=== PATIENT | female | born 1985 | race Caucasian/White ===

== ENCOUNTER 2020-03-16 09:11 | Outpatient (REF) | payer OTHER, SELFPAY ==
[2020-03-16 10:15] LABS: COVID-19 Test Negative (Negative)
== END 2020-03-16 09:12 | disposition home or self-care (01) ==
LOC: HO.LAB 09:11
PROVIDERS: Visit Provider Internal Medicine
DX: Z20.828 Contact with and (suspected) exposure to other viral communicable diseases (principal)
CPT/HCPCS: 87635

== ENCOUNTER 2020-03-20 08:42 | Outpatient (REF) | payer OTHER, SELFPAY ==
[2020-03-20 09:27] LABS: COVID-19 Test Negative (Negative)
== END 2020-03-20 08:43 | disposition home or self-care (01) ==
LOC: HO.LAB 08:42
PROVIDERS: Visit Provider Internal Medicine
DX: Z20.828 Contact with and (suspected) exposure to other viral communicable diseases (principal)
CPT/HCPCS: 87635

== ENCOUNTER 2020-03-27 11:21 | Outpatient (REF) | payer OTHER, SELFPAY ==
[2020-03-27 12:12] LABS: COVID-19 Test Negative (Negative)
== END 2020-03-27 11:22 | disposition home or self-care (01) ==
LOC: HO.LAB 11:21
PROVIDERS: Visit Provider Internal Medicine
DX: Z20.828 Contact with and (suspected) exposure to other viral communicable diseases (principal)
CPT/HCPCS: 87635

== ENCOUNTER 2020-04-04 11:24 | Outpatient (REF) | payer OTHER, SELFPAY ==
[2020-04-04 11:50] LABS: COVID-19 Test Negative (Negative)
== END 2020-04-04 11:25 | disposition home or self-care (01) ==
LOC: HO.LAB 11:24
PROVIDERS: Visit Provider Internal Medicine
DX: Z20.828 Contact with and (suspected) exposure to other viral communicable diseases (principal)
CPT/HCPCS: 87635; 90686; C9803

== ENCOUNTER 2020-04-11 11:02 | Outpatient (REF) | payer OTHER, SELFPAY ==
[2020-04-11 11:26] LABS: COVID-19 Test Negative (Negative); IDNOW Serial# 55D5AD1C
== END 2020-04-11 11:03 | disposition home or self-care (01) ==
LOC: HO.EMPCOV 11:02
PROVIDERS: Visit Provider Internal Medicine
DX: Z20.828 Contact with and (suspected) exposure to other viral communicable diseases (principal)
CPT/HCPCS: 87635; C9803

== ENCOUNTER 2020-04-14 10:56 | Outpatient (REF) | payer OTHER, SELFPAY ==
[2020-04-14 11:51] LABS: COVID-19 Test Negative (Negative); IDNOW Serial# 55D5AD1C
== END 2020-04-14 10:57 | disposition home or self-care (01) ==
LOC: HO.EMPCOV 10:56
PROVIDERS: Visit Provider Internal Medicine
DX: Z20.828 Contact with and (suspected) exposure to other viral communicable diseases (principal)
CPT/HCPCS: 87635; C9803

== ENCOUNTER 2020-05-12 09:09 | Outpatient (REF) | payer OTHER, SELFPAY ==
[2020-05-12 09:55] LABS: COVID-19 Test Negative (Negative); IDNOW Serial# 55D5AD1C
== END 2020-05-12 09:10 | disposition home or self-care (01) ==
LOC: HO.LAB 09:09
PROVIDERS: Visit Provider Internal Medicine
DX: Z20.828 Contact with and (suspected) exposure to other viral communicable diseases (principal)
CPT/HCPCS: 87635; C9803

== ENCOUNTER 2020-06-06 08:55 | Outpatient (REF) | payer OTHER, SELFPAY ==
[2020-06-06 09:11] LABS: COVID-19 Test Negative (Negative)
== END 2020-06-06 08:56 | disposition home or self-care (01) ==
LOC: HO.LAB 08:55
PROVIDERS: Visit Provider Internal Medicine
DX: Z20.822 Contact with and (suspected) exposure to COVID-19 (principal)
CPT/HCPCS: 36415; 87635; C9803

== ENCOUNTER 2020-08-09 08:34 | Outpatient (REF) | payer OTHER, SELFPAY ==
[2020-08-09 08:53] LABS: COVID-19 Test Negative (Negative)
== END 2020-08-09 08:35 | disposition home or self-care (01) ==
LOC: HO.EMPCOV 08:34
PROVIDERS: Visit Provider Internal Medicine
DX: Z20.822 Contact with and (suspected) exposure to COVID-19 (principal)
CPT/HCPCS: 36415; 87635; C9803

== ENCOUNTER 2020-09-13 16:07 | Emergency (ER) | payer OTHER, SELFPAY ==
--- NOTE | ~2020-09-13 | CT_ITS ---
EXAMINATION: CT ABDOMEN AND PELVIS WITH CONTRAST CLINICAL INFORMATION: Abdominal pain. Rebound tenderness. COMPARISON: CT abdomen pelvis 09/19/2019 TECHNIQUE: Multidetector volumetric images were obtained from the superior aspect of the liver through the pubic symphysis following administration 85 mL of Omnipaque 350 intravenous contrast. Sagittal and coronal reformatted images were obtained on the technologist's workstation. Oral contrast: No This CT examination was performed using dose optimization techniques as appropriate, variously including the following: *Automated exposure control *Adjustment of mA and/or kV according to patient size (this includes techniques or standardized protocols for targeted exams where dose is matched to indication/reason for exam; i.e. extremities or head) *Use of iterative reconstruction technique DLP: 687 mGy-cm FINDINGS: Visualized lung bases are well aerated. The liver demonstrates normal size, contour and attenuation. The gallbladder is surgically absent. There is minimal intrahepatic biliary ductal dilatation. The common bile duct is mildly prominent measuring up to 7 mm in diameter. The pancreas, spleen and adrenal glands are unremarkable. Symmetrically enhancing kidneys. There is no hydronephrosis of either kidney. Similar postsurgical changes of the stomach. Normal caliber loops of small and large bowel. Normal appendix. The distal colon is relatively decompressed and therefore not accurately evaluated although there does appear to be mild diffuse circumferential fatty infiltration of the distal colon, nonspecific. Nonaneurysmal abdominal aorta. The bladder is normal in appearance. Unremarkable CT appearance of the uterus. No gross free pelvic fluid. No inguinal lymphadenopathy. No acute osseous abnormality. CT/CT abdomen pelvis w con IMPRESSION: -No gross CT evidence for acute abnormality within the abdomen or pelvis. -The distal colon is relatively decompressed and therefore not accurately evaluated although there does appear to be mild diffuse circumferential fatty infiltration of the distal colon. This is a nonspecific finding and may be simply secondary to the colons decompressed status, however, a very mild colitis or the sequelae of prior colitis is within the differential. Clinical correlation recommended.
[2020-09-13 16:25] VITALS: BP 130/75; PULSE 91; RESP 19; TEMP 36.8; O2SAT 96; BMI 35.9
[2020-09-13 16:58] LABS: Glucose Urine UA NEG (NEG); Leukocyte Esterase Urine NEG (NEG); Nitrite Urine NEG (NEG); Specific Gravity - Urine 1.015 (1.005-1.025); Urine Blood 2+ (NEG); Urine Ketones NEG (NEG); Urine Protein NEG (NEG-TRACE)
[2020-09-13 16:59] LABS: Appearance Urine CLEAR; Color Urine YELLOW
[2020-09-13 17:08] LABS: Bacteria Urine TRACE /LPF; Squamous Epithelial Cell Urine TRACE /LPF
[2020-09-13 18:06] LABS: MANUAL DIFF FLAG NO
[2020-09-13 18:09] LABS: Basophils Absolute Auto 0.1 X10*3/uL (0.0-0.2); Basophils Percent Auto 1.2 % (0-2); Eosinophils Absolute Auto 0.5 X10*3/uL (0.0-0.4); Eosinophils Percent Auto 4.8 % (0-4); Hematocrit 40.5 % (37-47); Imm Gran Abs Auto 0.03 X10*3/uL (0.00-0.03); Imm Gran Pct Auto 0.3 % (0.0-0.4); Lymphocytes Absolute Auto 2.7 X10*3/uL (1.2-4.9); Lymphocytes Percent Auto 25.8 % (20-40); Mean Corpuscular HGB Conc 32.1 g/dl (31.0-35.0); Mean Corpuscular Hemoglobin 28.9 pg (27.0-33.0); Mean Platelet Volume 9.9 fL (9.4-12.3); Monocytes Absolute Auto 0.5 X10*3/uL (0.1-1.2); Monocytes Percent Auto 4.9 % (2-11); Neutrophils Absolute Auto 6.5 X10*3/uL (2.0-8.3); Platelet Count 382 X10*3/uL (160-400); Red Cell Distribution Width 14.4 % (11.0-16.0); White Blood Count 10.4 X10*3/uL (4.8-10.8)
--- NOTE | 2020-09-13 18:16 | ED_ITS ---
HPI - General Adult General Chief complaint: General Medical Stated complaint: Abdominal pain Source: patient Mode of arrival: ambulatory Limitations: no limitations History of Present Illness HPI narrative: 35-year-old female with past medical history of gastric sleeve, ovarian cyst, and migraines presents with sudden onset of lower abdominal pain, radiating from her pelvis across the lower portion of her abdomen. She states it feels like a ruptured ovarian cyst, as she has had in the past. She does not describe any abnormal vaginal discharge, denies trauma, denies fevers, chills, chest pain or pressure, palpitations, shortness of breath, shortness of breath on exertion, abdominal distention, dysuria, hematuria, melena, hematochezia, and any other concerning symptoms. Onset (ago): hour(s) (Several hours) Location: abdomen and pelvis Severity: severe Severity scale (1-10): 10 Quality: aching and constant Pain Consistency: constant Relieving factors: none Exacerbating factors: movement Associated symptoms: denies other symptoms Treatments prior to arrival: none Related Data Previous Rx's Medication Instructions Recorded levofloxacin 750 mg PO DAILY 6 Days #6 tab 09/13/20 metronidazole [Flagyl] 500 mg PO Q8H 7 Days #21 tab 09/13/20 oxycodone 5 mg PO Q8H PRN #7 tab 09/13/20 Allergies Allergy/AdvReac Type Severity Reaction Status Date / Time morphine [MORPHINE] Allergy Unknown SHORTNESS Unverified 02/10/20 16:49 OF BREATH NSAIDS (Non-Steroidal Allergy Unknown ANAPHYLAXIS Unverified 02/10/20 16:49 Anti-Inflamma [NSAIDS] Sulfa (Sulfonamide Allergy Unknown HIVES Unverified 02/10/20 16:49 Antibiotics) [SULFA (SULFONAMIDE ANTIBIOTICS)] tree nut [TREE NUT] Allergy Unknown HIVES Unverified 02/10/20 16:49 Review of Systems Review of Systems: Constitutional: No Weight loss, No Fever, No Chills, No Night Sweats, No Fatigu e, No Malaise ENT/Mouth: No Hearing loss, No Ear Pain, No Nasal Congestion, No Sinus Pain, No Hoarseness, No sore throat, No Rhinorrhea, No Swallowing Difficulty Eyes: No Eye Pain, No Swelling, No Redness, No Foreign Body, No Discharge, No Vision Changes Cardiovascular: No Chest Pain, No SOB, No Dyspnea on Exertion, No Orthopnea, No Edema, No Palpitations Respiratory: No Cough, No Sputum, No Wheezing, No Smoke Exposure, No Dyspnea Gastrointestinal: Positive Nausea, no Vomiting, no Diarrhea, positive abdominal Pain, No Hematochezia, No Melena Genitourinary: no irregular bleeding, No Dysuria, No Urinary Frequency, No Hematuria, No Urinary Incontinence, No Urgency, No Flank Pain, No Urinary Flow Changes, No Hesitancy Musculoskeletal: No joint pain, No Myalgias, No Joint Swelling Skin: No Skin Lesions, No rash Neuro: No Weakness, No Numbness, No Paresthesias, No Loss of Consciousness, No Dizziness, No Headache Psych: No Anxiety/Panic, No Depression, No SI/HI/AH/VH, No Social Issues Heme/Lymph: No Bruising, No Bleeding,No Lymphadenopathy Endocrine: No Polyuria, No Polydipsia, No Temperature Intolerance Yes all other systems are reviewed and are negative [facility] Past Medical History Attestation statement: The following information was validated with the patient. Source: old records reviewed Medical History (Updated 09/14/20 @ 00:01 by Jazmin Valdez) Anxiety Migraines Ovarian cyst PCOS (polycystic ovarian syndrome) Surgical History Gastric bypass status for obesity Social History Social History Advance Directives: No Advance Directives Information Provided: Yes Physical Exam Vital Signs: Vital Signs: Last Vital Signs Temp 98.2 F 09/13/20 16:25 Pulse 83 09/13/20 19:15 Resp 16 09/13/20 19:15 BP 122/75 09/13/20 19:15 Pulse Ox 99 09/13/20 19:15 Body Mass Index 35.9 Appearance: Alert. Oriented X3. Moderate distress. Head: Normal external exam. Normocephalic. Atraumatic. No Xie signs noted. No raccoon eyes noted Eyes: PERRLA. EOMI. Conjunctiva and sclera normal. Eyelids normal. ENT: TM's Normal. Pharynx normal. Uvula midline. Moist mucous membranes. No trismus noted. No drooling noted. No muffled voice noted. Neck: Normal inspection. Neck supple. No adenopathy. CVS: Normal heart rate and rhythm. Heart sound normal. No murmurs noted. Pulses equal to all extremities. Respiratory: No respiratory distress. Painless inspiration. Breath sounds normal. No wheezes/rales/rhonchi noted. Chest nontender. No accessory muscle usage noted or decreased air movement noted. Abdomen: Soft and tender to left lower and suprapubic. Positive bilateral CVA tenderness. Bowel sounds normal in all 4 quadrants. No distention noted. No organomegaly noted. No visible injury noted. Back: No CVA tenderness. Full range of motion noted. Skin: Skin warm and dry. Normal skin color. Normal skin turgor. No rashes/lesions/lacerations noted. Extremities: No lower extremity edema. Extremities exhibit normal range of motion. Extremities nontender. Neuro: cranial nerves 2-12 intact, no focal neural deficits, strength 5/5 to a ll extremities, No motor deficit. No sensory deficit. Course Course Course Narrative: 35-year-old female presents with sudden onset of sharp stabbing lower suprapubic abdominal pain radiating out to right and left lower quadrants. Patient does have history of gastric sleeve, anaphylactic allergic to NSAIDs. Will order CT scan of abdomen and pelvis. CBC and Chem 7 are unremarkable, urinalysis positive for heme but no indication of UTI. CT scan concerning for colitis. Patient is afebrile, appears nontoxic, able tolerate p.o. fluids. Will discharge home with p.o. antibiotics. Patient does understand that if symptoms worsen or if she is unable to tolerate p.o. fluids that she must return to the emergency department for further evaluation. Patient verbalized understanding of and agrees to plan of care discharge home. Medical Decision Making Differential Diagnosis Differential Diagnosis: Ruptured ovarian cyst, colitis, constipation, pancreatitis, appendicitis Medical Records Medical records reviewed: Yes I reviewed the patient's medical records. Lab Data Lab results reviewed: Yes I reviewed the patient's lab results. Result diagrams: 09/13/20 17:51 09/13/20 17:51 Labs: Lab Results 09/13/20 09/13/20 09/13/20 Range/Units 16:42 16:42 17:51 WBC 10.4 (4.8-10.8) X10*3/uL RBC 4.50 (4.20-5.50) X10*6/uL Hgb 13.0 (12.0-16.0) g/dl Hct 40.5 (37-47) % MCV 90.0 (80-98) fL MCH 28.9 (27.0-33.0) pg MCHC 32.1 (31.0-35.0) g/dl RDW 14.4 (11.0-16.0) % Plt Count 382 (160-400) X10*3/uL MPV 9.9 (9.4-12.3) fL Immature Gran % (Auto) 0.3 (0.0-0.4) % Neut % (Auto) 63.0 (45-73) % Lymph % (Auto) 25.8 (20-40) % [place] % (Auto) 4.9 (2-11) % Eos % (Auto) 4.8 H (0-4) % Baso % (Auto) 1.2 (0-2) % Lymph # (Auto) 2.7 (1.2-4.9) X10*3/uL [place] # (Auto) 0.5 (0.1-1.2) X10*3/uL Eos # (Auto) 0.5 H (0.0-0.4) X10*3/uL Baso # (Auto) 0.1 (0.0-0.2) X10*3/uL Abs Immat Gran (auto) 0.03 (0.00-0.03) X10*3/uL Absolute Neuts (auto) 6.5 (2.0-8.3) X10*3/uL Absolute Nucleated RBC 0.000 (0.0-0.012) X10*3/uL Nucleated RBC % (auto) 0.0 (0.0-0.2) /100WBC PT (10.8-13.0) SEC INR (0.9-1.1) APTT (24.1-38.0) SEC Hold Blue Top Sodium (135-145) mmol/L Potassium (3.3-5.1) mmol/L Chloride (96-108) mmol/L Carbon Dioxide (22-29) mmol/L Anion Gap (12-20) BUN (9-16) mg/dL Creatinine (0.5-1.4) mg/dL Estim Creat Clear Calc Estimated GFR Random Glucose (60-115) mg/dL Calcium (8.4-10.2) mg/dL Total Bilirubin (0.0-1.0) mg/dL AST (5-31) U/L ALT (0-31) U/L Alkaline Phosphatase (39-117) U/L Total Protein (6.5-8.0) g/dL Albumin (3.5-5.0) g/dL Urine Color YELLOW Urine Appearance CLEAR Urine pH 6.0 (5.0-8.0) Ur Specific [place] 1.015 (1.005-1.025) Urine Protein NEG (NEG-TRACE) MG/DL Urine Glucose (UA) NEG (NEG) MG/DL Urine Ketones NEG (NEG) MG/DL Urine Blood 2+ H (NEG) Urine Nitrite NEG (NEG) Ur Leukocyte Esterase NEG (NEG) Urine RBC 1-4 (0) /HPF Urine WBC 1-4 (0-4) /HPF Ur Squamous Epith Cells TRACE /LPF Urine Bacteria TRACE /LPF Urine Test NEGATIVE (NEGATIVE) 09/13/20 09/13/20 09/13/20 Range/Units 17:51 17:51 17:51 WBC (4.8-10.8) X10*3/uL RBC (4.20-5.50) X10*6/uL Hgb (12.0-16.0) g/dl Hct (37-47) % MCV (80-98) fL MCH (27.0-33.0) pg MCHC (31.0-35.0) g/dl RDW (11.0-16.0) % Plt Count (160-400) X10*3/uL MPV (9.4-12.3) fL Immature Gran % (Auto) (0.0-0.4) % Neut % (Auto) (45-73) % Lymph % (Auto) (20-40) % [place] % (Auto) (2-11) % Eos % (Auto) (0-4) % Baso % (Auto) (0-2) % Lymph # (Auto) (1.2-4.9) X10*3/uL [place] # (Auto) (0.1-1.2) X10*3/uL Eos # (Auto) (0.0-0.4) X10*3/uL Baso # (Auto) (0.0-0.2) X10*3/uL Abs Immat Gran (auto) (0.00-0.03) X10*3/uL Absolute Neuts (auto) (2.0-8.3) X10*3/uL Absolute Nucleated RBC (0.0-0.012) X10*3/uL Nucleated RBC % (auto) (0.0-0.2) /100WBC PT 10.2 L (10.8-13.0) SEC INR 0.9 (0.9-1.1) APTT 29.0 (24.1-38.0) SEC Hold Blue Top SEE NOTE Sodium 141 (135-145) mmol/L Potassium 4.1 (3.3-5.1) mmol/L Chloride 107 (96-108) mmol/L Carbon Dioxide 23 (22-29) mmol/L Anion Gap 15 (12-20) BUN 7 L (9-16) mg/dL Creatinine 0.63 (0.5-1.4) mg/dL Estim Creat Clear Calc 121.9 Estimated GFR > 60 Random Glucose 83 (60-115) mg/dL Calcium 9.1 (8.4-10.2) mg/dL Total Bilirubin 0.5 (0.0-1.0) mg/dL AST 19 (5-31) U/L ALT 7 (0-31) U/L Alkaline Phosphatase 71 (39-117) U/L Total Protein 6.8 (6.5-8.0) g/dL Albumin 4.2 (3.5-5.0) g/dL Urine Color Urine Appearance Urine pH (5.0-8.0) Ur Specific [place] (1.005-1.025) Urine Protein (NEG-TRACE) MG/DL Urine Glucose (UA) (NEG) MG/DL Urine Ketones (NEG) MG/DL Urine Blood (NEG) Urine Nitrite (NEG) Ur Leukocyte Esterase (NEG) Urine RBC (0) /HPF Urine WBC (0-4) /HPF Ur Squamous Epith Cells /LPF Urine Bacteria /LPF Urine Test (NEGATIVE) Imaging Data CT scan - abdomen: Attestation: I personally reviewed and interpreted this imaging study as follows: Radiologist's impression: EXAMINATION: CT ABDOMEN AND PELVIS WITH CONTRAST CLINICAL INFORMATION: Abdominal pain. Rebound tenderness. COMPARISON: CT abdomen pelvis 09/19/2019 TECHNIQUE: Multidetector volumetric images were obtained from the superior aspect of the liver through the pubic symphysis following administration 85 mL of Omnipaque 350 intravenous contrast. Sagittal and coronal reformatted images were obtained on the technologist's workstation. Oral contrast: No This CT examination was performed using dose optimization techniques as appropriate, variously including the following: *Automated exposure control *Adjustment of mA and/or kV according to patient size (this includes techniques or standardized protocols for targeted exams where dose is matched to indication/reason for exam; i.e. extremities or head) *Use of iterative reconstruction technique DLP: 687 mGy-cm FINDINGS: Visualized lung bases are well aerated. The liver demonstrates normal size, contour and attenuation. The gallbladder is surgically absent. There is minimal intrahepatic biliary ductal dilatation. The common bile duct is mildly prominent measuring up to 7 mm in diameter. The pancreas, spleen and adrenal glands are unremarkable. Symmetrically enhancing kidneys. There is no hydronephrosis of either kidney. Similar postsurgical changes of the stomach. Normal caliber loops of small and large bowel. Normal appendix. The distal colon is relatively decompressed and therefore not accurately evaluated although there does appear to be mild diffuse circumferential fatty infiltration of the distal colon, nonspecific. Nonaneurysmal abdominal aorta. The bladder is normal in appearance. Unremarkable CT appearance of the uterus. No gross free pelvic fluid. No inguinal lymphadenopathy. No acute osseous abnormality. CT/CT abdomen pelvis w con IMPRESSION: -No gross CT evidence for acute abnormality within the abdomen or pelvis. -The distal colon is relatively decompressed and therefore not accurately evaluated although there does appear to be mild diffuse circumferential fatty infiltration of the distal colon. This is a nonspecific finding and may be simply secondary to the colons decompressed status, however, a very mild colitis or the sequelae of prior colitis is within the differential. Clinical correlation recommended. Discharge Plan Discharge Clinical Impression: Colitis Patient Disposition: Home, Self-Care Instructions: Colitis (ED) Additional Instructions: You were evaluated for abdominal pain. CT scan shows colitis. Please take Levaquin 750 mg once daily for 7 days. Please take Flagyl 500 mg 3 times a day for the next 7 days. Please use oxycodone for pain management. Oxycodone is a narcotic and has high risk for addiction and abuse. Not drive or operate machinery while taking this medication. Please use MiraLax and or Colace to help soften stools. Drink plenty of fluids. Follow-up with primary care provider in the next week. Thank you for choosing this emergency department for evaluation. Please follow-up with primary care physician as needed. Return to the emergency department for any new, concerning, or worsening symptoms. Prescriptions: New levofloxacin 750 mg tablet 750 mg PO DAILY 6 Days Qty: 6 RF: 0 metronidazole [Flagyl] 500 mg tablet 500 mg PO Q8H 7 Days Qty: 21 RF: 0 oxycodone 5 mg tablet 5 mg PO Q8H PRN (Reason: pain) Qty: 7 RF: 0 Stand Alone Forms: Work/School Release Interventions: ED Discharge Assessment Last Done: 09/13/20 22:28 Discharge Date/Time: 09/13/20 22:35
[2020-09-13 18:33] LABS: Alanine Aminotransferase 7 U/L (0-31); Albumin Level 4.2 g/dL (3.5-5.0); Alkaline Phosphatase 71 U/L (39-117); Anion Gap 15 (12-20); Aspartate Amino Transferase 19 U/L (5-31); Bilirubin Total 0.5 mg/dL (0.0-1.0); Blood Urea Nitrogen 7 mg/dL (9-16); Calcium 9.1 mg/dL (8.4-10.2); Carbon Dioxide 23 mmol/L (22-29); Chloride 107 mmol/L (96-108); Creatinine Clr Calc Pharmacy 121.9; Estimated Glomerular Filt Rate > 60; Glucose Random 83 mg/dL (60-115); Potassium 4.1 mmol/L (3.3-5.1); Sodium 141 mmol/L (135-145); Total Protein 6.8 g/dL (6.5-8.0)
[2020-09-13 18:43] VITALS: RESP 16
[2020-09-13] MEDS: 0.9 % Sodium Chloride 1,000 ML 999 ML IVCONT (18:43)
[2020-09-13] MEDS: HYDROmorphone HCl 1 MG/ML SYRINGE IVPUSH (18:43)
[2020-09-13] MEDS: ondansetron HCL 4 MG/2 ML VIAL IVPUSH (18:43)
[2020-09-13 19:15] VITALS: BP 122/75; PULSE 83; RESP 16; O2SAT 99
[2020-09-13 19:31] LABS: UPreg QC Valid YES; Urine Pregnancy NEGATIVE (NEGATIVE)
[2020-09-13] MEDS: iohexoL 350 MG/ML 100 ML INFUS..BTL IV (19:46)
[2020-09-13 20:03] LABS: INTERNATIONAL NORM RATIO 0.9 (0.9-1.1); Prothrombin Time 10.2 SEC (10.8-13.0)
[2020-09-13] MEDS: metroNIDAZOLE 500 MG TABLET PO (21:47)
[2020-09-13] MEDS: levoFLOXacin 750 MG TABLET PO (21:47)
[2020-09-13] MEDS: oxyCODONE HCl Immed Release 5 MG TABLET PO (21:47)
== END 2020-09-13 22:35 | disposition home or self-care (01) ==
PROVIDERS: Nurse Practitioner Family; Emergency Provider Internal Medicine; PCP Internal Medicine
DX: K52.9 Noninfective gastroenteritis and colitis, unspecified (principal); R10.2 Pelvic and perineal pain; Z98.84 Bariatric surgery status; Z79.899 Other long term (current) drug therapy
CPT/HCPCS: 36415; 74177; 80053; 81001; 81025; 85025; 85610; 85730; 96361; 96365; 96375; 99284; J1170; J2405; Q9967

== ENCOUNTER 2021-03-10 00:17 | Outpatient (REF) | payer OTHER, SELFPAY ==
[2021-03-10 01:09] LABS: Influenza A PCR NEGATIVE (Negative); Influenza B PCR NEGATIVE (Negative); Resp Syncy Virus RNA Qual PCR NEGATIVE (Negative); SARS COV2 PCR INHOUSE NEGATIVE (Negative)
== END 2021-03-10 00:18 | disposition home or self-care (01) ==
LOC: HO.LAB 00:17
PROVIDERS: PCP Internal Medicine; Visit Provider Physician Assistant Medical
DX: Z20.822 Contact with and (suspected) exposure to COVID-19 (principal)
CPT/HCPCS: 0241U; 36415

== ENCOUNTER 2021-03-22 23:52 | Outpatient (REF) | payer OTHER, SELFPAY ==
[2021-03-23 00:45] LABS: Influenza A PCR NEGATIVE (Negative); Influenza B PCR NEGATIVE (Negative); Resp Syncy Virus RNA Qual PCR NEGATIVE (Negative); SARS COV2 PCR INHOUSE NEGATIVE (Negative)
== END 2021-03-22 23:53 | disposition home or self-care (01) ==
LOC: HO.LAB 23:52
PROVIDERS: Visit Provider Physician Assistant
DX: Z20.822 Contact with and (suspected) exposure to COVID-19 (principal)
CPT/HCPCS: 0241U; 36415

== ENCOUNTER 2021-04-01 23:09 | Outpatient (REF) | payer OTHER, SELFPAY ==
[2021-04-02] LABS: Influenza A PCR NEGATIVE (Negative); Influenza B PCR NEGATIVE (Negative); Resp Syncy Virus RNA Qual PCR NEGATIVE (Negative); SARS COV2 PCR INHOUSE NEGATIVE (Negative)
== END 2021-04-01 23:10 | disposition home or self-care (01) ==
LOC: HO.LAB 23:09
PROVIDERS: Visit Provider Physician Assistant
DX: Z20.822 Contact with and (suspected) exposure to COVID-19 (principal)
CPT/HCPCS: 0241U; 36415

== ENCOUNTER 2021-04-16 22:58 | Outpatient (REF) | payer OTHER, SELFPAY ==
[2021-04-16 23:49] LABS: Influenza A PCR NEGATIVE (Negative); Influenza B PCR NEGATIVE (Negative); Resp Syncy Virus RNA Qual PCR NEGATIVE (Negative); SARS COV2 PCR INHOUSE NEGATIVE (Negative)
== END 2021-04-16 22:59 | disposition home or self-care (01) ==
LOC: HO.LAB 22:58
PROVIDERS: Visit Provider Physician Assistant
DX: Z20.822 Contact with and (suspected) exposure to COVID-19 (principal)
CPT/HCPCS: 0241U; 36415

== ENCOUNTER 2022-01-16 09:25 | Emergency (ER) | payer OTHER, SELFPAY ==
--- NOTE | ~2022-01-16 | XR_ITS ---
EXAMINATION: XR CHEST CLINICAL INFORMATION: Shortness of breath COMPARISON: None TECHNIQUE: Frontal view of the chest was obtained. FINDINGS: Lungs are hypoinflated and clear. No airspace disease, pleural effusion or pneumothorax. Cardiac silhouette is normal in size. The hilar contours are normal. The visualized bones, and upper abdomen, are unremarkable. XR/XR chest 1V IMPRESSION: No acute cardiopulmonary findings.
[2022-01-16 09:28] VITALS: BP 128/81; PULSE 104; RESP 24; TEMP 36.6; O2SAT 99; BMI 36.8
--- NOTE | 2022-01-16 09:31 | ECG_ITS ---
Test Reason : sob Blood Pressure : / mmHG Vent. Rate : 095 BPM Atrial Rate : 095 BPM P-R Int : 126 ms QRS Dur : 078 ms QT Int : 358 ms P-R-T Axes : 055 002 029 degrees QTc Int : 449 ms Normal sinus rhythm Normal ECG No previous ECGs available Referred By: Khadra Lobo Electronically Signed By:KAREN LA
[2022-01-16] MEDS: Albuterol/Iprat 2.5/0.5MG 3 ML AMPUL.NEB INHALE (09:56)
[2022-01-16 09:57] VITALS: PULSE 78; RESP 22; O2SAT 99
--- NOTE | 2022-01-16 10:01 | ED.URI ---
HPI - URI/Sore Throat General Chief Complaint: Upper Respiratory Symptoms Stated Complaint: diff breathing Time Seen by Provider: 01/16/22 09:31 Source: patient Mode of arrival: ambulatory History of Present Illness HPI Narrative: 36-year-old female with a past medical history of anxiety, migraines, PCOS, presenting to the ED complaining of chills, dry cough and worsening SOB x5 days. Reports orthopnea, and she cannot catch her breath. Also reports bilateral LE edema. Used son's inhaler without relief. Denies known fever, abdominal pain, calf pain, recent travel, oral OCPs, history of clots MD elicited complaint: cough Onset (ago): day(s) Related Data Previous Rx's Medication Instructions Recorded levofloxacin 750 mg tablet 750 mg PO DAILY 6 days #6 tabs 09/13/20 metronidazole 500 mg tablet 500 mg PO Q8H 7 days #21 tabs 09/13/20 (Flagyl) oxycodone 5 mg tablet 5 mg PO Q8H PRN pain #7 tabs 09/13/20 amoxicillin 875 mg-potassium 1 tab PO BID 10 days #20 tabs 11/01/21 clavulanate 125 mg tablet fluconazole 150 mg tablet 150 mg PO Q3D 2 doses #2 tabs 11/01/21 (Diflucan) albuterol sulfate 90 mcg/actuation 2 puff inhalation Q4-6H PRN 01/16/22 aerosol inhaler shortness of breath or wheezing #6.7 grams prednisone 20 mg tablet 40 mg PO DAILY 5 days #10 tabs 01/16/22 Allergies Allergy/AdvReac Type Severity Reaction Status Date / Time morphine [MORPHINE] Allergy Unknown SHORTNESS Unverified 02/10/20 16:49 OF BREATH NSAIDS (Non-Steroidal Allergy Unknown ANAPHYLAXIS Unverified 02/10/20 16:49 Anti-Inflamma [NSAIDS] Sulfa (Sulfonamide Allergy Unknown HIVES Unverified 02/10/20 16:49 Antibiotics) [SULFA (SULFONAMIDE ANTIBIOTICS)] tree nut [TREE NUT] Allergy Unknown HIVES Unverified 02/10/20 16:49 Review of Systems Review of Systems: Constitutional: No Fever, + Chills, No Fatigue, No Malaise ENT/Mouth: No Ear Pain, No Nasal Congestion, No sore throat, + Rhinorrhea, No Swallowing Difficulty Eyes: No Eye Pain, No Swelling, No Redness, No Vision Changes Cardiovascular: No Chest Pain, + SOB, No Dyspnea on Exertion, + Orthopnea, No Edema, No Palpitations Respiratory: + Cough, No Sputum, + Wheezing, No Dyspnea Gastrointestinal: No Nausea, No Vomiting, No Diarrhea, No Constipation, No Abdominal pain Genitourinary: No Dysuria, No Flank Pain, No Urinary Flow Changes Musculoskeletal: No joint pain, No Myalgias, No Joint Swelling Skin: No Skin Lesions, No rash Neuro: No Weakness, No Numbness, No Dizziness, No Headache Yes all other systems are reviewed and are negative Constitutional: Constitutional: Reports as per [facility] Past Medical History Attestation statement: The following information was validated with the patient. Medical History (Updated 01/16/22 @ 13:12 by CHANO Scruggs) Anxiety Migraines Ovarian cyst PCOS (polycystic ovarian syndrome) Surgical History Gastric bypass status for obesity Social History Social History Advance Directives: No Advance Directives Information Provided: No Physical Exam Vital Signs: Vital Signs: Last Vital Signs Temp 98 F 01/16/22 09:28 Pulse 92 01/16/22 10:55 Resp 30 H 01/16/22 10:55 BP 128/81 01/16/22 09:28 Pulse Ox 99 01/16/22 09:28 O2 Del Method 01/16/22 09:28 BMI result Body Mass Index 36.8 Const: General: cooperative, healthy appearing, no acute distress and anxious Orientation/consciousness: patient oriented x3 Limitations: no limitations HEENT: Head: Yes normal to inspection and Yes atraumatic Ears: hearing grossly normal bilaterally General nose exam: Normal external nose present Face and sinus: Yes normal facial exam Throat: Yes posterior oropharynx normal, Yes tonsils normal and Yes uvula midline Eyes: General: appearance normal, both eyes and all related structures EOM: EOMs intact bilaterally Neck: Neck: Yes normal visual inspection and Yes no meningeal signs Resp: Effort & Inspection: no respiratory distress and tachypneic Auscultation: wheezes expiratory wheezes and diminished lung sounds diffuse Cardio: Rate: regular rate Heart sounds: S1 normal heart sound present and S2 normal heart sound present Skin: Rashes: no rashes Wounds: no wounds Neuro: General: patient oriented x3, tone normal and no meningeal signs Gait exam (Neuro): Normal gait present Extrem: General: Yes no calf tenderness and Yes edema (2+ bilaterally) Course Course Course Narrative: 1046-- XR chest 1V IMPRESSION: No acute cardiopulmonary findings. > On re-evaluation patient with increasing anxiety, tachycardic to 125 on the monitor, P waves visible. P.o. Ativan ordered as well as Xopenex DuoNeb. Reports symptomatic improvement after DuoNeb, lungs now CTA -no leukocytosis. D-dimer negative. Troponin negative. BNP negative. -1311--labs otherwise unremarkable. COVID-19 negative > patient reports symptomatic improvement/resolution after p.o. Ativan. Lungs CTA. Nontoxic appearing. Results discussed with patient including worrisome signs and symptoms and strict return precautions, and when to return to the emergency department. They verbalized understanding and feel safe for discharge at this time. MDM - URI/Sore Throat MDM Narrative Medical decision making narrative: 36-year-old female with a past medical history of anxiety, migraines, PCOS, presenting to the ED complaining of chills, dry cough and worsening SOB x5 days. On exam tachycardic, tachypneic, anxious, shallow breath sounds throughout with mild expiratory wheeze. 2+ bilateral LE pitting edema. No calf tenderness. Concern for viral illness including COVID-19 vs bronchitis vs pneumonia vs CHF vs anxiety reaction. R/o ACS Plan: EKG, labs, CXR, COVID-19 testing, DuoNeb, re-evaluate Differential Diagnosis Differential diagnosis: Likely upper respiratory infection, viral infection, bronchitis, influenza and pharyngitis Medical Records Attestation: I reviewed the patient's medical records. Lab Data Attestation: I reviewed the patient's lab results. Result diagrams: 01/16/22 10:18 01/16/22 12:18 Labs: Lab Results 01/16/22 01/16/22 01/16/22 Range/Units 10:11 10:18 10:18 WBC 10.1 (4.8-10.8) X10*3/uL RBC 4.94 (4.20-5.50) X10*6/uL Hgb 13.7 (12.0-16.0) g/dl Hct 41.9 (37.0-47.0) % MCV 84.8 (80.0-98.0) fL MCH 27.7 (27.0-33.0) pg MCHC 32.7 (31.0-35.0) g/dl RDW 14.9 (11.0-16.0) % Plt Count 390 (160-400) X10*3/uL MPV 9.9 (9.4-12.3) fL Immature Gran % (Auto) 0.3 (0.0-0.4) % Neut % (Auto) 57.1 (45-73) % Lymph % (Auto) 29.6 (20-40) % Thomas % (Auto) 5.9 (2-11) % Eos % (Auto) 6.2 H (0-4) % Baso % (Auto) 0.9 (0-2) % Lymph # (Auto) 3.0 (1.2-4.9) X10*3/uL Thomas # (Auto) 0.6 (0.1-1.2) X10*3/uL Eos # (Auto) 0.6 H (0.0-0.4) X10*3/uL Baso # (Auto) 0.1 (0.0-0.2) X10*3/uL Abs Immat Gran (auto) 0.03 (0.00-0.03) X10*3/uL Absolute Neuts (auto) 5.8 (2.0-8.3) x10*3/uL Absolute Nucleated RBC 0.000 (0.0-0.012) X10*3/uL Nucleated RBC % (auto) 0.0 (0.0-0.2) /100WBC D-Dimer High Sensitivty NG/ML Sodium (135-145) mmol/L Potassium (3.3-5.1) mmol/L Chloride (96-108) mmol/L Carbon Dioxide (22-29) mmol/L Anion Gap (12-20) BUN (9-16) mg/dL Creatinine (0.5-1.4) mg/dL Estim Creat Clear Calc Estimated GFR Random Glucose (60-115) mg/dL Calcium (8.4-10.2) mg/dL Total Bilirubin (0.0-1.0) mg/dL Direct Bilirubin (0.0-0.5) mg/dL AST (5-31) U/L ALT (0-31) U/L Alkaline Phosphatase (39-117) U/L Troponin I High Sens < 3.5 (<3.5-17.0) ng/L B-Natriuretic Peptide < 10 (<100) pg/mL Total Protein (6.5-8.0) g/dL Albumin (3.5-5.0) g/dL COVID-19 (HYUN) Negative (Negative) COVID-19 Clin Com See Note 01/16/22 01/16/22 Range/Units 10:18 12:18 WBC (4.8-10.8) X10*3/uL RBC (4.20-5.50) X10*6/uL Hgb (12.0-16.0) g/dl Hct (37.0-47.0) % MCV (80.0-98.0) fL MCH (27.0-33.0) pg MCHC (31.0-35.0) g/dl RDW (11.0-16.0) % Plt Count (160-400) X10*3/uL MPV (9.4-12.3) fL Immature Gran % (Auto) (0.0-0.4) % Neut % (Auto) (45-73) % Lymph % (Auto) (20-40) % Thomas % (Auto) (2-11) % Eos % (Auto) (0-4) % Baso % (Auto) (0-2) % Lymph # (Auto) (1.2-4.9) X10*3/uL Thomas # (Auto) (0.1-1.2) X10*3/uL Eos # (Auto) (0.0-0.4) X10*3/uL Baso # (Auto) (0.0-0.2) X10*3/uL Abs Immat Gran (auto) (0.00-0.03) X10*3/uL Absolute Neuts (auto) (2.0-8.3) x10*3/uL Absolute Nucleated RBC (0.0-0.012) X10*3/uL Nucleated RBC % (auto) (0.0-0.2) /100WBC D-Dimer High Sensitivty < 150 NG/ML Sodium 142 (135-145) mmol/L Potassium 3.7 (3.3-5.1) mmol/L Chloride 109 H (96-108) mmol/L Carbon Dioxide 21 L (22-29) mmol/L Anion Gap 16 (12-20) BUN 8 L (9-16) mg/dL Creatinine 0.65 (0.5-1.4) mg/dL Estim Creat Clear Calc 118.7 Estimated GFR > 60 Random Glucose 111 (60-115) mg/dL Calcium 8.9 (8.4-10.2) mg/dL Total Bilirubin 0.4 (0.0-1.0) mg/dL Direct Bilirubin 0.2 (0.0-0.5) mg/dL AST 20 (5-31) U/L ALT 9 (0-31) U/L Alkaline Phosphatase 69 (39-117) U/L Troponin I High Sens (<3.5-17.0) ng/L B-Natriuretic Peptide (<100) pg/mL Total Protein 6.5 (6.5-8.0) g/dL Albumin 3.9 (3.5-5.0) g/dL COVID-19 (HYUN) (Negative) COVID-19 Clin Com Discharge Plan Discharge Clinical Impression: Upper respiratory infection Patient Disposition: Home, Self-Care Instructions: Viral Syndrome (ED) Additional Instructions: Your blood work was reassuring today in the emergency department. your chest x-ray was negative for any pneumonia. He tested negative for COVID-19. Start taking prednisone for the next 5 days as prescribed. Additionally use albuterol inhaler as needed. If symptoms persist or worsen return to the emergency department. Follow up with her doctor/pulmonology Prescriptions: New prednisone 20 mg tablet 40 mg PO DAILY 5 Days Qty: 10 0RF albuterol sulfate 90 mcg/actuation HFA aerosol inhaler 2 puff inhalation Q4-6H PRN (Reason: shortness of breath or wheezing) Qty: 6.7 0RF No Action levofloxacin 750 mg tablet 750 mg PO DAILY 6 Days Qty: 6 0RF metronidazole [Flagyl] 500 mg tablet 500 mg PO Q8H 7 Days Qty: 21 0RF oxycodone 5 mg tablet 5 mg PO Q8H PRN (Reason: pain) Qty: 7 0RF Rx Instructions: Patient has tolerated oxycodone in the emergency department. amoxicillin-pot clavulanate 875-125 mg tablet 1 tab PO BID 10 Days Qty: 20 0RF fluconazole [Diflucan] 150 mg tablet 150 mg PO Q3D Qty: 2 0RF Referrals: Bean Hood MD [Physician] - Alec Lafleur MD [Physician] - Iveth Pantoja MD [Physician] - Kuldeep Hickman MD [Primary Care Provider] - 3 days Stand Alone Forms: Work/School Release
[2022-01-16 10:25] LABS: MANUAL DIFF FLAG NO
[2022-01-16 10:27] LABS: Basophils Absolute Auto 0.1 X10*3/uL (0.0-0.2); Basophils Percent Auto 0.9 % (0-2); Eosinophils Absolute Auto 0.6 X10*3/uL (0.0-0.4); Eosinophils Percent Auto 6.2 % (0-4); Hematocrit 41.9 % (37.0-47.0); Hemoglobin 13.7 g/dl (12.0-16.0); Imm Gran Abs Auto 0.03 X10*3/uL (0.00-0.03); Imm Gran Pct Auto 0.3 % (0.0-0.4); Lymphocytes Percent Auto 29.6 % (20-40); Mean Corpuscular HGB Conc 32.7 g/dl (31.0-35.0); Mean Corpuscular Hemoglobin 27.7 pg (27.0-33.0); Mean Corpuscular Volume 84.8 fL (80.0-98.0); Mean Platelet Volume 9.9 fL (9.4-12.3); Monocytes Absolute Auto 0.6 X10*3/uL (0.1-1.2); Monocytes Percent Auto 5.9 % (2-11); Neutrophils Absolute Auto 5.8 x10*3/uL (2.0-8.3); Neutrophils Percent Auto 57.1 % (45-73); Platelet Count 390 X10*3/uL (160-400); Red Blood Count 4.94 X10*6/uL (4.20-5.50); Red Cell Distribution Width 14.9 % (11.0-16.0); White Blood Count 10.1 X10*3/uL (4.8-10.8)
[2022-01-16 10:41] LABS: D Dimer High Sensitivity < 150 NG/ML
[2022-01-16 10:48] LABS: COVID-19 Test Negative (Negative)
[2022-01-16] MEDS: LORazepam 1 MG TABLET PO (10:49)
[2022-01-16 10:54] LABS: B Type Natriuretic Peptide < 10 pg/mL (<100); Troponin-I High Sensitivity < 3.5 ng/L (<3.5-17.0)
[2022-01-16 10:55] VITALS: PULSE 92; RESP 30
[2022-01-16] MEDS: 0.9 % Sodium Chloride 500 ML 999 ML IV (12:22)
[2022-01-16 12:50] LABS: Alanine Aminotransferase 9 U/L (0-31); Albumin Level 3.9 g/dL (3.5-5.0); Alkaline Phosphatase 69 U/L (39-117); Anion Gap 16 (12-20); Aspartate Amino Transferase 20 U/L (5-31); Bilirubin Direct 0.2 mg/dL (0.0-0.5); Bilirubin Total 0.4 mg/dL (0.0-1.0); Blood Urea Nitrogen 8 mg/dL (9-16); Calcium 8.9 mg/dL (8.4-10.2); Carbon Dioxide 21 mmol/L (22-29); Chloride 109 mmol/L (96-108); Creatinine Clr Calc Pharmacy 118.7; Estimated Glomerular Filt Rate > 60; Glucose Random 111 mg/dL (60-115); Potassium 3.7 mmol/L (3.3-5.1); Sodium 142 mmol/L (135-145); Total Protein 6.5 g/dL (6.5-8.0)
[2022-01-16 13:38] VITALS: BP 106/58; PULSE 96; RESP 14; TEMP 36.8; O2SAT 99
== END 2022-01-16 13:41 | disposition home or self-care (01) ==
PROVIDERS: Physician Assistant; Emergency Provider Emergency Medicine; PCP Internal Medicine
DX: J06.9 Acute upper respiratory infection, unspecified (principal); R06.02 Shortness of breath; Z20.822 Contact with and (suspected) exposure to COVID-19; Z79.899 Other long term (current) drug therapy
CPT/HCPCS: 36415; 71045; 80048; 80076; 83880; 84484; 85025; 85379; 87635; 93005; 94640; 96360; 99284

== ENCOUNTER 2022-06-13 12:15 | Emergency (ER) | payer OTHER, SELFPAY ==
--- NOTE | ~2022-06-13 | CT_ITS ---
EXAMINATION: CT ABDOMEN AND PELVIS WITHOUT CONTRAST CLINICAL INFORMATION: Right flank pain COMPARISON: 09/13/2020 TECHNIQUE: Multidetector volumetric imaging was performed from the superior aspect of the liver through the pubic symphysis. Sagittal and coronal reformatted images were obtained on the technologist's workstation. This CT examination was performed using dose optimization techniques as appropriate, variously including the following: *Automated exposure control *Adjustment of mA and/or kV according to patient size (this includes techniques or standardized protocols for targeted exams where dose is matched to indication/reason for exam; i.e. extremities or head) *Use of iterative reconstruction technique DLP: 753 mGy-cm FINDINGS: LUNG BASES: Normal. No pulmonary consolidation or pleural effusion. LIVER: The liver has normal size, shape, and attenuation. No evidence of liver mass. GALLBLADDER AND BILIARY TREE: Gallbladder is surgically absent. No dilated bile ducts. PANCREAS: Normal. No edema, pancreatic ductal dilatation or mass. SPLEEN: Normal. ADRENAL GLANDS: Normal. KIDNEYS AND URETERS: The kidneys have normal size and cortical thickness. No perinephric edema or fluid collection. No urolithiasis or hydroureteronephrosis. BLADDER: Normal. No calculi or wall thickening. BOWEL AND PERITONEUM: Prior gastric sleeve surgery. No dilated bowel loops. No focal bowel wall thickening, mesenteric fat stranding or free fluid. No pneumoperitoneum. The appendix is normal. ABDOMINAL WALL: Unremarkable. VASCULATURE: Unremarkable. LYMPH NODES: No pathologic sized lymph nodes in the abdomen or pelvis. No inguinal lymphadenopathy. PELVIC VISCERA: No evidence of uterine or adnexal mass. Dominant follicle within the right ovary measures approximately 2 cm. No pelvic free fluid. MUSCULOSKELETAL: Unremarkable. CT/CT abdomen pelvis wo IV con IMPRESSION: * No nephrolithiasis or hydronephrosis. * No acute imaging abnormalities in the abdomen or pelvis compared to 09/13/2020.
[2022-06-13 12:20] VITALS: BP 115/80; PULSE 96; RESP 18; TEMP 36.7; O2SAT 100; BMI 38.7
[2022-06-13 12:37] LABS: Appearance Urine Clear; Color Urine Yellow; Glucose Urine UA Negative (Negative); Leukocyte Esterase Urine Small (1+) (Negative); Nitrite Urine Negative (Negative); UMIC TRIGGER UACC YES; Urine Blood Negative (Negative); Urine Ketones Negative (Negative); Urine Protein Negative (Neg-Trace)
--- NOTE | 2022-06-13 12:54 | ED.GENADULT ---
HPI - General Adult General Chief complaint: Back Pain/Injury <Sunny Moore - Last Filed: 06/13/22 15:04> Stated complaint: Right flank pain <Sunny Moore - Last Filed: 06/13/22 15:04> Time Seen by Provider: 06/13/22 12:46 <Sunny Moore - Last Filed: 06/13/22 15:04> Source: patient <Sunny Moore - Last Filed: 06/13/22 15:04> Limitations: no limitations <Sunny Moore - Last Filed: 06/13/22 15:04> History of Present Illness HPI narrative: 37-year-old female who presents to the ER with right-sided flank pain onset this a.m.. Pain is come in waves and sharp in nature. Associated nausea no vomiting. Patient did have a kidney stone many years prior which she passed on her own when she was . Patient states symptoms are consistent with how she felt at that time with a kidney stone. Negative tobacco history symptoms moderate. Pain 8/10. No recent trauma or falls or injuries to that area of her back. No other complaints at this time <Sunny Moore - Last Filed: 06/13/22 15:04> Related Data Home medications: Previous Rx's Medication Instructions Recorded levofloxacin 750 mg tablet 750 mg PO DAILY 6 days #6 tabs 09/13/20 metronidazole 500 mg tablet 500 mg PO Q8H 7 days #21 tabs 09/13/20 (Flagyl) oxycodone 5 mg tablet 5 mg PO Q8H PRN pain #7 tabs 09/13/20 amoxicillin 875 mg-potassium 1 tab PO BID 10 days #20 tabs 11/01/21 clavulanate 125 mg tablet fluconazole 150 mg tablet 150 mg PO Q3D 2 doses #2 tabs 11/01/21 (Diflucan) albuterol sulfate 90 mcg/actuation 2 puff inhalation Q4-6H PRN 01/16/22 aerosol inhaler shortness of breath or wheezing #6.7 grams prednisone 20 mg tablet 40 mg PO DAILY 5 days #10 tabs 01/16/22 acetaminophen 500 mg tablet 1,000 mg PO TID PRN pain #30 tabs 06/13/22 oxycodone 5 mg tablet 5 mg PO Q6H PRN pain #10 tabs 06/13/22 <Sunny Moore - Last Filed: 06/13/22 15:04> Allergies/adverse reactions: Allergies Allergy/AdvReac Type Severity Reaction Status Date / Time morphine [MORPHINE] Allergy Unknown SHORTNESS Unverified 02/10/20 16:49 OF BREATH NSAIDS (Non-Steroidal Allergy Unknown ANAPHYLAXIS Unverified 02/10/20 16:49 Anti-Inflamma [NSAIDS] Sulfa (Sulfonamide Allergy Unknown HIVES Unverified 02/10/20 16:49 Antibiotics) [SULFA (SULFONAMIDE ANTIBIOTICS)] tree nut [TREE NUT] Allergy Unknown HIVES Unverified 02/10/20 16:49 <Sunny Moore - Last Filed: 06/13/22 15:04> Review of Systems Constitutional: Constitutional: Denies chills, Denies fever(s), Denies headache(s) and Denies malaise <Sunny Moore - Last Filed: 06/13/22 15:04> ENT: Denies headache(s) and Denies sore throat <Sunny Moore - Last Filed: 06/13/22 15:04> Cardiovascular: Cardiovascular: Denies dyspnea <Sunny Moore Last Filed: 06/13/22 15:04> Respiratory: Respiratory: Denies dyspnea <Sunny Moore Last Filed: 06/13/22 15:04> Gastrointestinal: Gastrointestinal: Reports nausea, Denies vomiting and Reports other (Right-sided flank pain) <Sunny Moore - Last Filed: 06/13/22 15:04> Genitourinary: Genitourinary: Reports flank pain <Sunny Moore - Last Filed: 06/13/22 15:04> Musculoskeletal: Musculoskeletal: Reports back pain <Sunny Moore - Last Filed: 06/13/22 15:04> Neurologic: Denies headache(s) <Sunny Moore Last Filed: 06/13/22 15:04> PMF Past Medical History Attestation statement: The following information was validated with the patient. <Sunny Moore Last Filed: 06/13/22 15:04> Medical History: Medical History Anxiety Migraines Ovarian cyst PCOS (polycystic ovarian syndrome) <Sunny Moore - Last Filed: 06/13/22 15:04> Surgical History: Surgical History Gastric bypass status for obesity <Sunny Moore - Last Filed: 06/13/22 15:04> Social History Social History: Social History Advance Directives: No Advance Directives Information Provided: Yes <Sunny Moore - Last Filed: 06/13/22 15:04> Physical Exam ED Vital Signs: Vital Signs - 24 hr 06/13/22 12:20 06/13/22 14:02 06/13/22 14:52 Temperature 98.1 F Pulse Rate 96 88 Respiratory Rate 18 16 Blood Pressure 115/80 82/47 L 110/71 Pulse Oximetry 100 98 Oxygen Delivery Method Room Air Room Air BMI result Body Mass Index 38.7 vital signs have been reviewed as normal and appeared to be correct. Blood pressure normal. Heart rate normal. Respiration rate normal. Temperature normal. Oxygen saturation normal. <Sunny Moore - Last Filed: 06/13/22 15:04> Vital Signs - 24 hr 06/13/22 12:20 06/13/22 14:02 06/13/22 14:52 Temperature 98.1 F Pulse Rate 96 88 Respiratory Rate 18 16 Blood Pressure 115/80 82/47 L 110/71 Pulse Oximetry 100 98 Oxygen Delivery Method Room Air Room Air BMI result Body Mass Index 38.7 <CHANO Albrecht - Last Filed: 06/15/22 10:25> Appearance: Alert. Oriented X3. No acute distress. Head: Normal external exam. Normocephalic. Atraumatic. Eyes: PERRLA. EOMI. Conjunctiva and sclera normal. Eyelids normal. ENT: Pharynx normal. Uvula midline. Moist mucous membranes. Neck: Soft full range of motion CVS: Heart regular rate and rhythm no murmurs and rubs Respiratory: Breath sounds are clear to auscultation bilaterally. No accessory muscle use noted. Abdomen: Abdomen no rebound or guarding otherwise nontender some slight flank tenderness pain increases in wears Back: Right-sided flank tenderness Skin: Skin warm and dry. Normal skin color. No rashes noted Extremities: Moving upper and lower extremities. Neuro: Oriented X 3. No motor deficit. No sensory deficit. Reflexes normal. <Sunny Moore - Last Filed: 06/13/22 15:04> Const Other: Pyelonephritis Right renal colic Renal calculi UTI <Sunny Moore - Last Filed: 06/13/22 15:04> Medications Administered Discontinued Medications Generic Name Dose Route Start Last Admin Trade Name Freq PRN Reason Stop Dose Admin Hydromorphone HCl 0.5 mg 06/13/22 12:51 06/13/22 13:05 Hydromorphone Hcl 0.5 Mg/0.5 Ml Syringe IVPUSH 06/13/22 12:52 0.5 mg ONCE ONE Administration Protocol Hydromorphone HCl 1 mg 06/13/22 14:50 06/13/22 14:57 Hydromorphone Hcl 1 Mg/Ml Syringe IVPUSH 06/13/22 14:51 1 mg ONCE ONE Administration Protocol Sodium Chloride 1,000 mls @ 999 mls/hr 06/13/22 13:00 06/13/22 14:08 Ns IV 06/13/22 14:00 Infused .Q1H1M LUISA Infusion <Sunny Moore - Last Filed: 06/13/22 15:04> Medications Administered Discontinued Medications Generic Name Dose Route Start Last Admin Trade Name Freq PRN Reason Stop Dose Admin Hydromorphone HCl 0.5 mg 06/13/22 12:51 06/13/22 13:05 Hydromorphone Hcl 0.5 Mg/0.5 Ml Syringe IVPUSH 06/13/22 12:52 0.5 mg ONCE ONE Administration Protocol Hydromorphone HCl 1 mg 06/13/22 14:50 06/13/22 14:57 Hydromorphone Hcl 1 Mg/Ml Syringe IVPUSH 06/13/22 14:51 1 mg ONCE ONE Administration Protocol Sodium Chloride 1,000 mls @ 999 mls/hr 06/13/22 13:00 06/13/22 14:08 Ns IV 06/13/22 14:00 Infused .Q1H1M LUISA Infusion <CHANO Albrecht - Last Filed: 06/15/22 10:25> Medical Decision Making Medical Decision Making MDM Narrative: 37-year-old female presents with right-sided flank pain sent nonsense this morning history of prior renal stone in the past. UA is pending patient has tubal ligation in the past. 1000 mL normal saline IV 0.5 mg allotted IV Patient has an allergy to morphine NSAIDs. Patient does have a surgical history of gastric bypass surgery 14:50 CT scan results are still pending patient still having pain at this time. 1 mg Dilaudid IV ordered 15:00 Patient signed out to the physician graduate research assistant Miguel Ramirez CT pending <Sunny Oscar - Last Filed: 06/13/22 15:04> 37-year-old female presents with right-sided flank pain sent nonsense this morning history of prior renal stone in the past. UA is pending patient has tubal ligation in the past. 1000 mL normal saline IV 0.5 mg allotted IV Patient has an allergy to morphine NSAIDs. Patient does have a surgical history of gastric bypass surgery 14:50 CT scan results are still pending patient still having pain at this time. 1 mg Dilaudid IV ordered 15:00 Patient signed out to the physician graduate research assistant Miguel Ramirez CT pending CT was nondiagnostic with no evidence now of hydronephrosis or a kidney stone, no other acute pathology Patient had no dysuria no frequency no discomfort with urination all is normal Urinalysis was negative for bacteria, 0-5 wbc's, 3-5 RBCs, nitrite negative test was negative In the absence of any urinary tract symptoms, no antibiotic was offered The pain and tenderness was located just above the right gluteal area on the right side in the lower lumbar paraspinal region, there was no CVA tenderness no abdominal tenderness on repeat abdominal exam no abdominal discomfort no vomiting The patient's pain was improved with analgesics and she is discharged , now comfortable,with a diagnosis of back pain, as etiology is not clear she will return for any worsening pain, pain not controlled with medication vomiting fever, development of abdominal pain or vomiting any worse condition <CHANO Albrecht - Last Filed: 06/15/22 10:25> Lab Data [facility] Lab Attestation statement: I reviewed the patient's lab results. <CHANO Albrecht - Last Filed: 06/15/22 10:25> Labs: Lab Results 06/13/22 06/13/22 Range/Units 12:30 12:30 Urine Color Yellow Urine Appearance Clear Urine pH 8.0 (5.0-9.0) Ur Specific [place] 1.020 (1.005-1.025) Urine Protein Negative (Neg-Trace) mg/dL Urine Glucose (UA) Negative (Negative) mg/dL Urine Ketones Negative (Negative) mg/dL Urine Blood Negative (Negative) Urine Nitrite Negative (Negative) Ur Leukocyte Esterase Small (1+) H (Negative) Urine RBC 3-5 H (0-2) /HPF Urine WBC 0-5 (0-5) /HPF Ur Squamous Epith Cells 0-2 (0-2) /HPF Urine Bacteria None Seen (None Seen) Hyaline Casts 0-2 (0-2) /LPF Urine Test NEGATIVE (NEGATIVE) <Sunny Moore - Last Filed: 06/13/22 15:04> Lab Results 06/13/22 06/13/22 Range/Units 12:30 12:30 Urine Color Yellow Urine Appearance Clear Urine pH 8.0 (5.0-9.0) Ur Specific [place] 1.020 (1.005-1.025) Urine Protein Negative (Neg-Trace) mg/dL Urine Glucose (UA) Negative (Negative) mg/dL Urine Ketones Negative (Negative) mg/dL Urine Blood Negative (Negative) Urine Nitrite Negative (Negative) Ur Leukocyte Esterase Small (1+) H (Negative) Urine RBC 3-5 H (0-2) /HPF Urine WBC 0-5 (0-5) /HPF Ur Squamous Epith Cells 0-2 (0-2) /HPF Urine Bacteria None Seen (None Seen) Hyaline Casts 0-2 (0-2) /LPF Urine Test NEGATIVE (NEGATIVE) <CHANO Albrecht - Last Filed: 06/15/22 10:25> Discharge Plan Discharge Clinical Impression: Acute flank pain <Sunny Moore - Last Filed: 06/13/22 15:04> Patient Disposition: Home, Self-Care <Sunny Moore - Last Filed: 06/13/22 15:04> Additional Instructions: your CT scan did not show any sign of kidney stones or any other acute pathology, urinalysis did not show any obvious infection The location of the pain and tenderness when I examined you is in the lumbar area and not near your kidney there was no abdominal tenderness or pain It is possible that this is an inflammation of some soft tissue structure in her back, but usually there is pain with movement so I am not sure what is causing the pain Return any time for any changed or worsened condition, especially development of abdominal pain vomiting fever, pain not controlled with medication, any worse condition or any concerns <Sunny Moore - Last Filed: 06/13/22 15:04> Prescriptions: New oxycodone 5 mg tablet 5 mg PO Q6H PRN (Reason: pain) Qty: 10 0RF Rx Instructions: Partial Fill upon patient request. acetaminophen 500 mg tablet 1,000 mg PO TID PRN (Reason: pain) Qty: 30 0RF No Action levofloxacin 750 mg tablet 750 mg PO DAILY 6 Days Qty: 6 0RF metronidazole [Flagyl] 500 mg tablet 500 mg PO Q8H 7 Days Qty: 21 0RF oxycodone 5 mg tablet 5 mg PO Q8H PRN (Reason: pain) Qty: 7 0RF Rx Instructions: Patient has tolerated oxycodone in the emergency department. amoxicillin-pot clavulanate 875-125 mg tablet 1 tab PO BID 10 Days Qty: 20 0RF fluconazole [Diflucan] 150 mg tablet 150 mg PO Q3D Qty: 2 0RF prednisone 20 mg tablet 40 mg PO DAILY 5 Days Qty: 10 0RF albuterol sulfate 90 mcg/actuation HFA aerosol inhaler 2 puff inhalation Q4-6H PRN (Reason: shortness of breath or wheezing) Qty: 6.7 0RF <Sunny Moore - Last Filed: 06/13/22 15:04> Stand Alone Forms: Work/School Release <Sunny Moore - Last Filed: 06/13/22 15:04> Interventions: ED Discharge Assessment Last Done: 06/13/22 17:20 <Sunny Moore - Last Filed: 06/13/22 15:04> Discharge Date/Time: 06/13/22 17:20 <Sunny Moore - Last Filed: 06/13/22 15:04>
[2022-06-13 12:56] LABS: Bacteria Urine None Seen (None Seen); Hyaline Casts Urine 0-2 /LPF (0-2); Squamous Epithelial Cell Urine 0-2 /HPF (0-2); UACC Culture Trigger YES; WBC Urine 0-5 /HPF (0-5)
[2022-06-13] MEDS: HYDROmorphone HCl 0.5 MG/0.5 ML SYRINGE IVPUSH (13:05)
[2022-06-13] MEDS: 0.9 % Sodium Chloride 1,000 ML 999 ML IV (13:07)
--- NOTE | 2022-06-13 13:41 | PC.NURSE ---
pt medicated according to orders, pt now reporting pain 09/02
[2022-06-13 14:02] VITALS: BP 82/47; PULSE 88; RESP 16; O2SAT 98
[2022-06-13 14:52] VITALS: BP 110/71
[2022-06-13] MEDS: HYDROmorphone HCl 1 MG/ML SYRINGE IVPUSH (14:57)
--- NOTE | 2022-06-13 15:02 | PC.NURSE ---
pt medicated for 6/10 flank pain, 1L NS infused- awaiting CT results
[2022-06-13 16:33] LABS: UPreg QC Valid YES; Urine Pregnancy NEGATIVE (NEGATIVE)
== END 2022-06-13 17:20 | disposition home or self-care (01) ==
PROVIDERS: Physician Assistant Medical; Emergency Provider Emergency Medicine Emergency Medical Services; PCP Internal Medicine
DX: M54.50 Low back pain, unspecified (principal); R10.2 Pelvic and perineal pain; Z79.899 Other long term (current) drug therapy
CPT/HCPCS: 74176; 81001; 81025; 87086; 96361; 96374; 96376; 99284; J1170

== ENCOUNTER 2022-09-27 09:42 | Emergency (ER) | payer OTHER, SELFPAY ==
--- NOTE | ~2022-09-27 | CT_ITS ---
EXAMINATION: CT ABDOMEN AND PELVIS WITH CONTRAST CLINICAL INFORMATION: Recent gastric bypass. COMPARISON: CT abdomen and pelvis 06/13/2022. TECHNIQUE: Multidetector volumetric images were obtained from the superior aspect of the liver through the pubic symphysis following administration 85 mL of Omnipaque 350 intravenous contrast. Sagittal and coronal reformatted images were obtained on the technologist's workstation. Oral contrast: No This CT examination was performed using dose optimization techniques as appropriate, variously including the following: *Automated exposure control *Adjustment of mA and/or kV according to patient size (this includes techniques or standardized protocols for targeted exams where dose is matched to indication/reason for exam; i.e. extremities or head) *Use of iterative reconstruction technique DLP: 629 mGy-cm FINDINGS: LUNG BASES: The visualized lung bases are unremarkable. LIVER, GALLBLADDER, AND BILIARY TREE: The liver is normal in size, shape, and attenuation. No focal hepatic lesion or biliary ductal dilatation is present. The gallbladder has been surgically removed. PANCREAS: Unremarkable. SPLEEN: Unremarkable. ADRENAL GLANDS: Unremarkable. KIDNEYS AND URETERS: The kidneys are normal in size, shape, and attenuation. No hydronephrosis, hydroureter, or calculi seen. No perinephric stranding. BLADDER: Unremarkable. GASTROINTESTINAL TRACT: There is gastric sleeve surgical changes. The small bowel loops are normal caliber. There is scattered stool in the colon without distention. No free air, obstruction or free fluid. ABDOMINAL WALL: There are postsurgical changes right upper abdomen. LYMPH NODES: Normal. VASCULAR: Unremarkable. PELVIC VISCERA: The uterus is midline. No adnexal mass or free fluid seen. OSSEOUS STRUCTURES: Unremarkable. CT/CT abdomen pelvis w IV con IMPRESSION: Status post gastric sleeve surgery changes, stable. No bowel obstruction, free air or free fluid. No nephrolith lithiasis or hydroureteronephrosis. No change compared to previous CT 06/13/2022. If patient has persistent upper abdominal pain related to gastric surgery a outpatient GI study can be performed. Fleischner guidelines were followed.
[2022-09-27 09:45] VITALS: BP 120/76; PULSE 95; RESP 18; TEMP 36.3; O2SAT 100; BMI 35.7
--- NOTE | 2022-09-27 10:07 | ED.ABDPAIN ---
HPI - Abdominal Pain General Chief Complaint: Abdominal Pain Stated Complaint: abd pain Time Seen by Provider: 09/27/22 09:54 Source: patient Mode of arrival: ambulatory Limitations: no limitations History of Present Illness HPI narrative: Patient is a 37-year-old female with history of recent gastric bypass on 08/02/2022, ovarian cyst, cholecystectomy, nephrolithiasis, anemia, bladder sling, and bilateral salpingectomy presenting to ED with one week of waxing and waning periumbilical abdominal pain. She reports that her pain initially began last Friday around her umbilicus and she was unsure if this was related to her impending menses. She reports her menses began on Friday and the abdominal pain persisted, did not feel similar to menstrual cramps. Denies current vaginal bleeding. She states pain also does not feel similar to pain she experienced with ovarian cyst. She states that her menses ended on Friday or Friday about her umbilical pain persisted and yesterday began to move toward her left lower quadrant. She reports severe nausea with episodes of increasing pain. She denies nausea when pain it is manageable, denies vomiting or diarrhea. She denies any fevers. She denies any other abdominal pain since her gastric bypass surgery. She reports that she did miss her gastric bypass follow-up appointment with her surgeon, Dr. Jose. She reports that she had a normal bowel movement yesterday. She reports that pain does not become better or worse after eating. She denies any urinary symptoms. Reports history of hemorrhoids but denies any rectal bleeding or melena. Related Data Previous Rx's Medication Instructions Recorded levofloxacin 750 mg tablet 750 mg PO DAILY 6 days #6 tabs 09/13/20 metronidazole 500 mg tablet 500 mg PO Q8H 7 days #21 tabs 09/13/20 (Flagyl) oxycodone 5 mg tablet 5 mg PO Q8H PRN pain #7 tabs 09/13/20 amoxicillin 875 mg-potassium 1 tab PO BID 10 days #20 tabs 11/01/21 clavulanate 125 mg tablet fluconazole 150 mg tablet 150 mg PO Q3D 2 doses #2 tabs 11/01/21 (Diflucan) albuterol sulfate 90 mcg/actuation 2 puff inhalation Q4-6H PRN 01/16/22 aerosol inhaler shortness of breath or wheezing #6.7 grams prednisone 20 mg tablet 40 mg PO DAILY 5 days #10 tabs 01/16/22 acetaminophen 500 mg tablet 1,000 mg PO TID PRN pain #30 tabs 06/13/22 oxycodone 5 mg tablet 5 mg PO Q6H PRN pain #10 tabs 06/13/22 ondansetron 4 mg disintegrating 4 mg PO Q8H PRN nausea and 09/27/22 tablet vomiting #15 tabs Allergies Allergy/AdvReac Type Severity Reaction Status Date / Time morphine [MORPHINE] Allergy Unknown SHORTNESS Verified 09/27/22 09:48 OF BREATH NSAIDS (Non-Steroidal Allergy Unknown Abdominal Verified 09/27/22 09:48 Anti-Inflamma Pain [NSAIDS] Sulfa (Sulfonamide Allergy Unknown HIVES Verified 09/27/22 09:48 Antibiotics) [SULFA (SULFONAMIDE ANTIBIOTICS)] tree nut [TREE NUT] Allergy Unknown HIVES Verified 09/27/22 09:48 Review of Systems Review of Systems Yes all other systems are reviewed and are negative Constitutional: Reports as per [facility] Past Medical History Medical History Anxiety Migraines Ovarian cyst PCOS (polycystic ovarian syndrome) Surgical History Gastric bypass status for obesity Social History Social History Alcohol intake: never Smoked in Last 30 Days: No Use of substances other than those prescribed or required for medical reasons: No Advance Directives: Yes Advance Directives on File: No Patient : No Physical Exam ED Vital Signs: Vital Signs - 24 hr 09/27/22 09:45 09/27/22 12:07 09/27/22 12:00 Temperature 97.3 F Pulse Rate 95 95 Respiratory Rate 18 20 18 Blood Pressure 120/76 147/96 H Pulse Oximetry 100 100 Oxygen Delivery Method Room Air Room Air 09/27/22 12:50 Temperature Pulse Rate Respiratory Rate 16 Blood Pressure Pulse Oximetry Oxygen Delivery Method BMI result Body Mass Index 35.7 Const General: cooperative, healthy appearing and no acute distress Orientation/consciousness: oriented to person, oriented to place, oriented to time and patient oriented x3 Limitations: no limitations HENMT Head: Yes normocephalic and Yes atraumatic Ears: external ears normal General nose exam: Normal external nose present Face and sinus: Yes face symmetric Mouth: oropharynx normal and moist mucous membranes Throat: Yes posterior oropharynx normal and Yes uvula midline Eyes Pupils: Equal, round and reactive pupils present Neck Neck: Yes normal visual inspection and Yes supple Resp Effort & Inspection: normal respiratory effort and able to speak in complete sentences Auscultation: clear to auscultation bilaterally Cardio Rate: regular rate Rhythm: regular rhythm Heart sounds: S1 normal heart sound present and S2 normal heart sound present GI Inspection: Yes normal to inspection and Yes other (recent surgical incisions well healed) Palpation (GI): Soft to palpation, Tenderness to palpation present (GI) in the LLQ, in the RLQ and periumbilically; psoas sign negative, with no rebound tenderness and Rovsing's sign negative, no guarding, no hernias, no masses, No Rebound tenderness present and No Bladder palpation abnormal Percussion: Yes normal to percussion Auscultation: normoactive bowel sounds General: No Bladder palpation abnormal and Yes no CVA tenderness Back/Spine/Pelvis Back: no CVA tenderness Skin General skin exam: elasticity normal and turgor normal Neuro General: oriented to person, oriented to place, oriented to time, patient oriented x3, moves all extremities, no focal motor deficits and CN's II-XI intact bilaterally Cranial nerves: Yes Equal, round and reactive pupils present Cognition (Neuro): normal cognition Extrem General: Yes full ROM, Yes no pedal edema and Yes no calf tenderness Psych Mental Status: mental status grossly normal Affect: normal affect Thought process: Normal thought process present Course Course Course Narrative: 11:07 Patient mildly anemic at 10.1/32.4, pt recently finished menses, hx of anemia, pt reports she has not taken her iron supplements for the past week, denies any active bleeding. 13:55 CT/CT abdomen pelvis w IV con IMPRESSION: Status post gastric sleeve surgery changes, stable. No bowel obstruction, free air or free fluid. ? No nephrolith lithiasis or hydroureteronephrosis. ? No change compared to previous CT 06/13/2022. If patient has persistent upper abdominal pain related to gastric surgery a outpatient GI study can be performed. ? Fleischner guidelines were followed. Results of labs and CT scan discussed with patient. Discussed obtaining ultrasound to rule out ovarian cyst or torsion. Through shared decision making, patient declined ultrasound at this time. Instructed her to follow up with gastric surgeon as well as PCP, and return precautions discussed at bedside. Prescribed Zofran for nausea. Medical Decision Making Medical Decision Making [facility] Narrative: Patient is a 37-year-old female with history of recent gastric bypass on 08/02/2022, ovarian cyst, cholecystectomy, nephrolithiasis, anemia, bladder sling, and bilateral salpingectomy presenting to ED with one week of waxing and waning periumbilical abdominal pain. On exam patient is nontoxic appearing, normal VS, afebrile, tender to palpation in bilateral lower quadrants, no rebound tenderness, no guarding, no CVA tenderness. Concern for bowel obstruction, perforation, diverticulitis, appendicitis, ovarian cyst, ovarian torsion, uterine fibroid, UTI/pyelonephritis. Less likely ectopic, pneumonia, hepatobiliary disease. Unlikely ACS/[place], pancreatitis, aortic dissection, AAA rupture. Plan: labs, pain and nausea control, CT with IV/PO contrast Please refer to course for remainder of clinical decision making. Differential Diagnosis Differential Diagnoses: The differential diagnosis associated with the presentation includes As above. Lab Data [facility] Lab Attestation statement: I reviewed the patient's lab results. 09/27/22 10:24 09/27/22 10:24 Labs: Lab Results 09/27/22 09/27/22 09/27/22 Range/Units 10:24 10:24 10:24 WBC 6.3 (4.8-10.8) X10*3/uL RBC 4.06 L (4.20-5.50) X10*6/uL Hgb 10.1 L D (12.0-16.0) g/dl Hct 32.4 L D (37.0-47.0) % MCV 79.8 L (80.0-98.0) fL MCH 24.9 L (27.0-33.0) pg MCHC 31.2 (31.0-35.0) g/dl RDW 17.9 H (11.0-16.0) % Plt Count 352 (160-400) X10*3/uL MPV 10.6 (9.4-12.3) fL Immature Gran % (Auto) 0.2 (0.0-0.4) % Neut % (Auto) 58.6 (45-73) % Lymph % (Auto) 27.2 (20-40) % Rogers % (Auto) 8.5 (2-11) % Eos % (Auto) 4.2 H (0-4) % Baso % (Auto) 1.3 (0-2) % Lymph # (Auto) 1.7 (1.2-4.9) X10*3/uL Rogers # (Auto) 0.5 (0.1-1.2) X10*3/uL Eos # (Auto) 0.3 (0.0-0.4) X10*3/uL Baso # (Auto) 0.1 (0.0-0.2) X10*3/uL Abs Immat Gran (auto) 0.01 (0.00-0.03) X10*3/uL Absolute Neuts (auto) 3.7 (2.0-8.3) x10*3/uL Absolute Nucleated RBC 0.000 (0.0-0.012) X10*3/uL Nucleated RBC % (auto) 0.0 (0.0-0.2) /100WBC ESR 18 (0-20) MM/HR PT (10.0-13.1) SEC INR (0.9-1.1) Sodium 144 (135-145) mmol/L Potassium 3.3 (3.3-5.1) mmol/L Chloride 110 H (96-108) mmol/L Carbon Dioxide 26 (22-29) mmol/L Anion Gap 11 L (12-20) BUN 9 (9-16) mg/dL Creatinine 0.61 (0.5-1.4) mg/dL Estim Creat Clear Calc 123.1 Estimated GFR > 60 Random Glucose 85 (60-115) mg/dL Calcium 9.1 (8.4-10.2) mg/dL Total Bilirubin 0.5 (0.0-1.0) mg/dL AST 20 (5-31) U/L ALT 10 (0-31) U/L Alkaline Phosphatase 93 (39-117) U/L Total Protein 6.0 L (6.5-8.0) g/dL Albumin 3.8 (3.5-5.0) g/dL Beta HCG, Quant < 2 mIU/mL 09/27/22 Range/Units 10:24 WBC (4.8-10.8) X10*3/uL RBC (4.20-5.50) X10*6/uL Hgb (12.0-16.0) g/dl Hct (37.0-47.0) % MCV (80.0-98.0) fL MCH (27.0-33.0) pg MCHC (31.0-35.0) g/dl RDW (11.0-16.0) % Plt Count (160-400) X10*3/uL MPV (9.4-12.3) fL Immature Gran % (Auto) (0.0-0.4) % Neut % (Auto) (45-73) % Lymph % (Auto) (20-40) % Rogers % (Auto) (2-11) % Eos % (Auto) (0-4) % Baso % (Auto) (0-2) % Lymph # (Auto) (1.2-4.9) X10*3/uL Rogers # (Auto) (0.1-1.2) X10*3/uL Eos # (Auto) (0.0-0.4) X10*3/uL Baso # (Auto) (0.0-0.2) X10*3/uL Abs Immat Gran (auto) (0.00-0.03) X10*3/uL Absolute Neuts (auto) (2.0-8.3) x10*3/uL Absolute Nucleated RBC (0.0-0.012) X10*3/uL Nucleated RBC % (auto) (0.0-0.2) /100WBC ESR (0-20) MM/HR PT 11.0 (10.0-13.1) SEC INR 1.0 (0.9-1.1) Sodium (135-145) mmol/L Potassium (3.3-5.1) mmol/L Chloride (96-108) mmol/L Carbon Dioxide (22-29) mmol/L Anion Gap (12-20) BUN (9-16) mg/dL Creatinine (0.5-1.4) mg/dL Estim Creat Clear Calc Estimated GFR Random Glucose (60-115) mg/dL Calcium (8.4-10.2) mg/dL Total Bilirubin (0.0-1.0) mg/dL AST (5-31) U/L ALT (0-31) U/L Alkaline Phosphatase (39-117) U/L Total Protein (6.5-8.0) g/dL Albumin (3.5-5.0) g/dL Beta HCG, Quant mIU/mL Independent Interpretation I performed an independent interpretation of an: CT Scan Interpretation: I independently reviewed the CT scan and agree with the radiologist's interpretation. Radiology Impression Discussion of test interpretation with radiology: I have reviewed the radiologist's reading. Radiologist Impression: CT/CT abdomen pelvis w IV con IMPRESSION: Status post gastric sleeve surgery changes, stable. No bowel obstruction, free air or free fluid. ? No nephrolith lithiasis or hydroureteronephrosis. ? No change compared to previous CT 06/13/2022. If patient has persistent upper abdominal pain related to gastric surgery a outpatient GI study can be performed. ? Fleischner guidelines were followed. External Record Review External record reviewed: Inpatient record, Office record and Outpatient record Tests considered The following testing was considered but not selected: ultrasound Prescription Management I considered prescription management with: Other (antiemetic) Chronic Conditions Patient?s care impacted by: Other (gastric bypass) Medications Administered Discontinued Medications Generic Name Dose Route Start Last Admin Trade Name Freq PRN Reason Stop Dose Admin Hydromorphone HCl 0.5 mg 09/27/22 10:23 09/27/22 10:44 Hydromorphone Hcl 0.5 Mg/0.5 Ml Syringe IVPUSH 09/27/22 10:24 0.5 mg ONCE ONE Administration Protocol Hydromorphone HCl 1 mg 09/27/22 11:26 09/27/22 12:07 Hydromorphone Hcl 1 Mg/Ml Syringe IVPUSH 09/27/22 11:27 1 mg ONCE ONE Administration Protocol Iohexol 85 ml 09/27/22 11:38 09/27/22 11:39 Iohexol 350 Mg/Ml 100 Ml Infus..Btl IV 09/27/22 11:39 85 ml ONCE ONE Administration Ondansetron HCl 4 mg 09/27/22 10:09/27/22 10:44 Ondansetron Hcl 4 Mg/2 Ml Vial IVPUSH 09/27/22 10:24 4 mg ONCE ONE Administration Discharge Plan Discharge Clinical Impression: Abdominal pain of unknown cause Patient Disposition: Home, Self-Care Instructions: Acute Abdominal Pain (DC) Additional Instructions: You have been evaluated in the emergency department today for abdominal pain. Your evaluation did not show evidence of medical conditions requiring emergent intervention at this time. You are being prescribed ondansetron which you may use as prescribed for nausea. Please schedule an appointment with your primary care physician as well as with the surgeon who performed your gastric bypass. Return to the emergency department if you experience worsening or uncontrolled pain, fevers 100.4? F or greater, recurrent vomiting, inability to tolerate food or fluids by mouth, bloody stools or vomit, black or tarry stools, or any other concerning symptoms. Prescriptions: New ondansetron 4 mg tablet,disintegrating 4 mg PO Q8H PRN (Reason: nausea and vomiting) Qty: 15 0RF No Action levofloxacin 750 mg tablet 750 mg PO DAILY 6 Days Qty: 6 0RF metronidazole [Flagyl] 500 mg tablet 500 mg PO Q8H 7 Days Qty: 21 0RF oxycodone 5 mg tablet 5 mg PO Q8H PRN (Reason: pain) Qty: 7 0RF Rx Instructions: Patient has tolerated oxycodone in the emergency department. amoxicillin-pot clavulanate 875-125 mg tablet 1 tab PO BID 10 Days Qty: 20 0RF fluconazole [Diflucan] 150 mg tablet 150 mg PO Q3D Qty: 2 0RF prednisone 20 mg tablet 40 mg PO DAILY 5 Days Qty: 10 0RF albuterol sulfate 90 mcg/actuation HFA aerosol inhaler 2 puff inhalation Q4-6H PRN (Reason: shortness of breath or wheezing) Qty: 6.7 0RF oxycodone 5 mg tablet 5 mg PO Q6H PRN (Reason: pain) Qty: 10 0RF Rx Instructions: Partial Fill upon patient request. acetaminophen 500 mg tablet 1,000 mg PO TID PRN (Reason: pain) Qty: 30 0RF
[2022-09-27 10:34] LABS: MANUAL DIFF FLAG NO
[2022-09-27 10:36] LABS: Basophils Absolute Auto 0.1 X10*3/uL (0.0-0.2); Basophils Percent Auto 1.3 % (0-2); Eosinophils Absolute Auto 0.3 X10*3/uL (0.0-0.4); Eosinophils Percent Auto 4.2 % (0-4); Hematocrit 32.4 % (37.0-47.0); Hemoglobin 10.1 g/dl (12.0-16.0); Imm Gran Abs Auto 0.01 X10*3/uL (0.00-0.03); Imm Gran Pct Auto 0.2 % (0.0-0.4); Lymphocytes Absolute Auto 1.7 X10*3/uL (1.2-4.9); Lymphocytes Percent Auto 27.2 % (20-40); Mean Corpuscular HGB Conc 31.2 g/dl (31.0-35.0); Mean Corpuscular Hemoglobin 24.9 pg (27.0-33.0); Mean Corpuscular Volume 79.8 fL (80.0-98.0); Mean Platelet Volume 10.6 fL (9.4-12.3); Monocytes Absolute Auto 0.5 X10*3/uL (0.1-1.2); Monocytes Percent Auto 8.5 % (2-11); Neutrophils Absolute Auto 3.7 x10*3/uL (2.0-8.3); Neutrophils Percent Auto 58.6 % (45-73); Platelet Count 352 X10*3/uL (160-400); Red Blood Count 4.06 X10*6/uL (4.20-5.50); Red Cell Distribution Width 17.9 % (11.0-16.0); White Blood Count 6.3 X10*3/uL (4.8-10.8)
[2022-09-27] MEDS: HYDROmorphone HCl 0.5 MG/0.5 ML SYRINGE IVPUSH (10:44)
[2022-09-27] MEDS: ondansetron HCL 4 MG/2 ML VIAL IVPUSH (10:44)
[2022-09-27 11:01] LABS: Alanine Aminotransferase 10 U/L (0-31); Albumin Level 3.8 g/dL (3.5-5.0); Alkaline Phosphatase 93 U/L (39-117); Anion Gap 11 (12-20); Aspartate Amino Transferase 20 U/L (5-31); Bilirubin Total 0.5 mg/dL (0.0-1.0); Blood Urea Nitrogen 9 mg/dL (9-16); Calcium 9.1 mg/dL (8.4-10.2); Carbon Dioxide 26 mmol/L (22-29); Chloride 110 mmol/L (96-108); Creatinine Clr Calc Pharmacy 123.1; Estimated Glomerular Filt Rate > 60; Glucose Random 85 mg/dL (60-115); Potassium 3.3 mmol/L (3.3-5.1); Sodium 144 mmol/L (135-145)
[2022-09-27 11:15] LABS: HCG Quantitative < 2 mIU/mL
[2022-09-27 11:16] LABS: Erythrocyte Sedimentation Rate 18 MM/HR (0-20)
[2022-09-27] MEDS: iohexoL 350 MG/ML 100 ML INFUS..BTL 85 ML IV (11:39)
[2022-09-27 12:00] VITALS: BP 147/96; PULSE 95; RESP 18; O2SAT 100
[2022-09-27 12:07] VITALS: RESP 20
[2022-09-27] MEDS: HYDROmorphone HCl 1 MG/ML SYRINGE IVPUSH (12:07)
[2022-09-27 12:50] VITALS: RESP 16
[2022-09-27 14:00] VITALS: BP 115/70; PULSE 78; RESP 18; O2SAT 100
[2022-09-28 18:29] LABS: CRP High Sensitivity 1.4 mg/L
== END 2022-09-27 14:24 | disposition home or self-care (01) ==
PROVIDERS: Registered Nurse Emergency; Emergency Provider Emergency Medicine; PCP Internal Medicine
DX: R10.30 Lower abdominal pain, unspecified (principal); Z98.84 Bariatric surgery status; Z79.899 Other long term (current) drug therapy
CPT/HCPCS: 36415; 74177; 80053; 84702; 85025; 85610; 85652; 86141; 96374; 96375; 96376; 99284; J1170; J2405; Q9967

== ENCOUNTER 2022-11-19 15:30 | Emergency (ER) | payer OTHER, SELFPAY ==
--- NOTE | ~2022-11-19 | CT_ITS ---
EXAMINATION: CT ABDOMEN AND PELVIS WITH CONTRAST CLINICAL INFORMATION: pain COMPARISON: 09/27/2022 TECHNIQUE: Multidetector volumetric imaging was performed from the superior aspect of the liver through the pubic symphysis following administration of 100 mL Omnipaque 300 intravenous contrast. Sagittal and coronal reformatted images were obtained on the technologist workstation.. This CT examination was performed using dose optimization techniques as appropriate, variously including the following: *Automated exposure control *Adjustment of mA and/or kV according to patient size (this includes techniques or standardized protocols for targeted exams where dose is matched to indication/reason for exam; i.e. extremities or head) *Use of iterative reconstruction technique DLP: 633 mGy-cm FINDINGS: LUNG BASES: The visualized lung bases are unremarkable. LIVER, GALLBLADDER, AND BILIARY TREE: There is diffuse fatty infiltration of the liver but no focal hepatic lesion nor biliary ductal dilatation. The gallbladder surgically absent. PANCREAS: There is mild fullness in the region the pancreatic body. This could be technique related although early interstitial pancreatitis cannot be entirely excluded and should be clinically correlated. No peripancreatic fluid collection and no pancreatic ductal dilatation. SPLEEN: Unremarkable. ADRENAL GLANDS: Unremarkable. KIDNEYS AND URETERS: The kidneys are normal in size, shape, and attenuation. No hydronephrosis, hydroureter, or calculi seen. No perinephric stranding. BLADDER: Unremarkable. GASTROINTESTINAL TRACT: Scattered colonic diverticulosis. No colonic wall thickening or pericolonic inflammatory change to suggest diverticulitis. Normal-appearing appendix in the right lower quadrant. No obstructive changes to the small bowel. Patient is status post Fiorella-en-Y gastric bypass. ABDOMINAL WALL: Postoperative regions of scarring. No obvious herniation LYMPHOVASCULAR STRUCTURES: No lymphadenopathy. The aorta is unremarkable. PELVIC VISCERA: Physiologic changes. OSSEOUS STRUCTURES: Unremarkable. CT/CT abdomen pelvis w IV con IMPRESSION: Chronic appearing and postoperative changes as described. I do not appreciate any acute intra-abdominal process. There is mild fullness to the pancreatic body which could be technique related although early interstitial pancreatitis cannot be excluded and should be clinically correlated. Amylase and lipase levels may be helpful.
[2022-11-19 15:34] VITALS: BP 123/76; PULSE 89; RESP 18; TEMP 36.6; O2SAT 99; BMI 35.1
--- NOTE | 2022-11-19 15:39 | ED.GENADULT ---
HPI - General Adult General Chief complaint: Abdominal Pain Stated complaint: Lower abd pain Time Seen by Provider: 11/19/22 15:34 Source: patient and RN notes reviewed Mode of arrival: ambulatory Limitations: no limitations History of Present Illness HPI narrative: This is a 37 year old female, with a past medical history of recent gastric bypass on 08/02/2022, ovarian cyst, cholecystectomy, nephrolithiasis, anemia, bladder sling, anxiety, ADD, and bilateral salpingectomy, presenting to the emergency department with complaints of periumbilical pain x 3 days. Pt reports that she has had a history of similar symptoms in the past where she was seen at [facility] and had negative workup. Patient reports that she has a history of ovarian cyst however reports that her current symptoms do not feel like cyst that she has had in the past. She describes the pain as sharp that waxes and wanes in severity. Reports that the pain is much more severe today. She has not been followed by her bariatric surgeon as she has missed multiple appointments and has had difficulty rescheduling appointments. Patient denies any fevers, chills, chest pain, shortness breath, palpitations, vomiting, or diarrhea. Last bowel movement was this morning it was normal. No dark or tarry stool. No other complaints or concerns at this time. MD complaint: Abdominal pain Quality: aching Pain Consistency: constant Relieving factors: none Exacerbating factors: none Associated symptoms: denies other symptoms Treatments prior to arrival: none Related Data Previous Rx's Medication Instructions Recorded levofloxacin 750 mg tablet 750 mg PO DAILY 6 days #6 tabs 09/13/20 metronidazole 500 mg tablet 500 mg PO Q8H 7 days #21 tabs 09/13/20 (Flagyl) oxycodone 5 mg tablet 5 mg PO Q8H PRN pain #7 tabs 09/13/20 amoxicillin 875 mg-potassium 1 tab PO BID 10 days #20 tabs 11/01/21 clavulanate 125 mg tablet fluconazole 150 mg tablet 150 mg PO Q3D 2 doses #2 tabs 11/01/21 (Diflucan) albuterol sulfate 90 mcg/actuation 2 puff inhalation Q4-6H PRN 01/16/22 aerosol inhaler shortness of breath or wheezing #6.7 grams prednisone 20 mg tablet 40 mg PO DAILY 5 days #10 tabs 01/16/22 acetaminophen 500 mg tablet 1,000 mg PO TID PRN pain #30 tabs 06/13/22 oxycodone 5 mg tablet 5 mg PO Q6H PRN pain #10 tabs 06/13/22 ondansetron 4 mg disintegrating 4 mg PO Q8H PRN nausea and 09/27/22 tablet vomiting #15 tabs oxycodone 5 mg tablet 5 mg PO BID PRN pain #8 tabs 11/19/22 Allergies Allergy/AdvReac Type Severity Reaction Status Date / Time morphine [MORPHINE] Allergy Unknown SHORTNESS Verified 09/27/22 09:48 OF BREATH NSAIDS (Non-Steroidal Allergy Unknown Abdominal Verified 09/27/22 09:48 Anti-Inflamma Pain [NSAIDS] Sulfa (Sulfonamide Allergy Unknown HIVES Verified 09/27/22 09:48 Antibiotics) [SULFA (SULFONAMIDE ANTIBIOTICS)] tree nut [TREE NUT] Allergy Unknown HIVES Verified 09/27/22 09:48 Review of Systems Review of Systems: Constitutional: No Weight loss, No Fever, No Chills, No Night Sweats, No Fatigue, No Malaise ENT/Mouth: No Hearing loss, No Ear Pain, No Nasal Congestion, No Sinus Pain, No Hoarseness, No sore throat, No Rhinorrhea, No Swallowing Difficulty Eyes: No Eye Pain, No Swelling, No Redness, No Foreign Body, No Discharge, No Vision Changes Cardiovascular: No Chest Pain, No SOB, No Dyspnea on Exertion, No Orthopnea, No Edema, No Palpitations Respiratory: No Cough, No Sputum, No Wheezing, No Smoke Exposure, No Dyspnea Gastrointestinal: No Nausea, No Vomiting, No Diarrhea, No Constipation, No Abdominal pain, No Hematochezia, No Melena Genitourinary: No irregular bleeding, No Dysuria, No Urinary Frequency, No Hematuria, No Urinary Incontinence/retention, No Urgency, No Flank Pain, No Urinary Flow Changes, No Hesitancy Musculoskeletal: No joint pain, No Myalgias, No Joint Swelling Skin: No Skin Lesions, No rash Neuro: No Weakness, No Numbness, No Paresthesias, No Loss of Consciousness, No Dizziness, No Headache Psych: No Anxiety/Panic, No Depression, No SI/HI/AH/VH, No Social Issues, Heme/Lymph: No Bruising, No Bleeding,No Lymphadenopathy Endocrine: No Polyuria, No Polydipsia, No Temperature Intolerance Yes all other systems are reviewed and are negative Constitutional: Constitutional: Reports as per [facility] Past Medical History Medical History Anxiety Migraines Ovarian cyst PCOS (polycystic ovarian syndrome) Surgical History Gastric bypass status for obesity Social History Social History Alcohol intake: current Alcohol intake frequency: holidays/special occasions only Smoked in Last 30 Days: No Advance Directives: No Advance Directives Information Provided: No Physical Exam ED Vital Signs: Vital Signs - 24 hr 11/19/22 15:34 11/19/22 17:34 Temperature 97.8 F Pulse Rate 89 94 Respiratory Rate 18 18 Blood Pressure 123/76 113/67 Pulse Oximetry 99 100 Oxygen Delivery Method Room Air Room Air BMI result Body Mass Index 35.1 Const General: cooperative, comfortable and no acute distress Orientation/consciousness: patient oriented x3 Limitations: no limitations [facility] Head: Yes normal to inspection, Yes normocephalic and Yes atraumatic Ears: hearing grossly normal bilaterally General nose exam: Normal external nose present Face and sinus: Yes normal facial exam Mouth: Normal oral and palatal mucosa present, oropharynx normal and moist mucous membranes Throat: Yes posterior oropharynx normal Eyes General: appearance normal, both eyes and all related structures Eyelids: Yes eyelids normal Conjunctivae: conjunctivae normal Sclerae: sclerae normal Pupils: Equal, round and reactive pupils present EOM: EOMs intact bilaterally Neck Neck: Yes normal visual inspection, Yes full ROM and Yes no lymphadenopathy Lymphatic: no lymphadenopathy noted Chest Chest palpation & inspection: normal inspection of the chest Resp Effort & Inspection: normal respiratory effort and able to speak in complete sentences Auscultation: clear to auscultation bilaterally, no crackles, no rales, no rhonchi and no wheezes Cardio Rate: regular rate Rhythm: regular rhythm Heart sounds: S1 normal heart sound present and S2 normal heart sound present GI Other: Abdomen is soft with exquisite tenderness periumbilically with guarding, mild tenderness to palpation in the right mid abdomen. No rebound. Normoactive bowel sounds present in all 4 quadrants. No right lower quadrant tenderness or left lower quadrant tenderness. Inspection: Yes normal to inspection Palpation (GI): Soft to palpation Skin General skin exam: no rashes or lesions noted Trauma: no lacerations or abrasions Wounds: no wounds Neuro General: patient oriented x3 and moves all extremities Cranial nerves: Yes Equal, round and reactive pupils present Extrem General: Yes normal to inspection Right upper extremity: normal to inspection Left upper extremity: normal to inspection Right lower extremity: normal to inspection Left lower extremity: normal to inspection Course Reevaluation(s) Reevaluation #1: Pt returns back from CT scan complaining of nausea and pain, patient medicated with Dilaudid and Compazine Time: 17:21 Reevaluation #2: Patient re-evaluated, nausea has improved, and pain improving. CT abdomen showing chronic appearing and postoperative changes, without any appreciable acute intra-abdominal process. There is mild fullness to the pancreatic body which could technique related, or early interstitial pancreatitis. Lipase was normal, unlikely pancreatitis. Discussed these results with patient. Discussed the importance of following up with her bariatric surgeon as she has been unable to do so in would benefit from further assessment and evaluation by their practice, may need upper GI study or lower GI study. UA pending. Time: 18:49 Reevaluation #3: Urine with small leuks, and wbc's, will wait for urine culture. Discussed results patient, given short course opioid medication. Advised to return with any new or worsening symptoms. Patient understands and agrees with plan. Time: 19:44 Medications Administered Discontinued Medications Generic Name Dose Route Start Last Admin Trade Name Freq PRN Reason Stop Dose Admin Hydromorphone HCl 0.5 mg 11/19/22 15:44 11/19/22 15:58 Hydromorphone Hcl 0.5 Mg/0.5 Ml Syringe IVPUSH 11/19/22 15:45 0.5 mg ONCE ONE Administration Protocol Hydromorphone HCl 0.25 mg 11/19/22 17:12 11/19/22 17:27 Hydromorphone Hcl 0.5 Mg/0.5 Ml Syringe IVPUSH 11/19/22 17:13 0.25 mg ONCE ONE Administration Protocol Sodium Chloride 1,000 mls @ 999 mls/hr 11/19/22 15:37 11/19/22 16:58 Ns IV 11/19/22 16:37 Infused .Q1H1M ONE Infusion Sodium Chloride 1,000 mls @ 999 mls/hr 11/19/22 17:19 11/19/22 17:29 Ns IV 11/19/22 18:19 999 mls/hr .Q1H1M ONE Administration Iohexol 100 ml 11/19/22 17:21 11/19/22 17:21 Iohexol 350 Mg/Ml 100 Ml Infus..Btl IV 11/19/22 17:22 85 ml ONCE ONE Administration Ondansetron HCl 4 mg 11/19/22 15:36 11/19/22 15:58 Ondansetron Hcl 4 Mg/2 Ml Vial IVPUSH 11/19/22 15:37 4 mg ONCE ONE Administration Prochlorperazine Edisylate 10 mg 11/19/22 17:18 11/19/22 17:28 Prochlorperazine Edisylate 10 Mg/2 Ml Vial IVPUSH 11/19/22 17:19 10 mg ONCE ONE Administration Medical Decision Making Medical Decision Making [facility] Narrative: 37 year old female, with a past medical history of recent gastric bypass on 08/02/2022, ovarian cyst, cholecystectomy, nephrolithiasis, anemia, bladder sling, anxiety, ADD, and bilateral salpingectomy, presenting to the emergency department with complaints of periumbilical pain x 3 days. On examination, patient is nontoxic appearing, Vital signs WNLm patient has tenderness to palpation periumbilically, and right mid quadrant. Plan: Labs, anti-emetics, pain management, CT abd and pelvis Differential Diagnosis Differential Diagnoses: The differential diagnosis associated with the presentation includes appendicitis, ischemic colitis, bowel obstruction, perforation, diverticulitis, UTI, pyelonephritis Admission/Observation Consideration of admission/observation: Escalation of care including admission/observation considered Consideration of care given significant abdominal pain, leukocytosis, and complex abdominal surgical history. Lab Data [facility] Lab Attestation statement: I reviewed the patient's lab results. Leukocytosis at 15.9, electrolytes within normal limits, microcytic anemia with stable H&H 10.5/34 - similar to previous 11/19/22 15:52 11/19/22 15:52 Labs: Lab Results 11/19/22 11/19/22 11/19/22 Range/Units 15:52 15:52 19:10 WBC 15.9 H (4.8-10.8) X10*3/uL RBC 4.30 (4.20-5.50) X10*6/uL Hgb 10.5 L (12.0-16.0) g/dl Hct 34.0 L (37.0-47.0) % MCV 79.1 L (80.0-98.0) fL MCH 24.4 L (27.0-33.0) pg MCHC 30.9 L (31.0-35.0) g/dl RDW 17.5 H (11.0-16.0) % Plt Count 473 H D (160-400) X10*3/uL MPV 10.4 (9.4-12.3) fL Immature Gran % (Auto) 0.4 (0.0-0.4) % Neut % (Auto) 69.0 (45-73) % Lymph % (Auto) 21.6 (20-40) % Platte % (Auto) 5.4 (2-11) % Eos % (Auto) 2.7 (0-4) % Baso % (Auto) 0.9 (0-2) % Lymph # (Auto) 3.4 (1.2-4.9) X10*3/uL Platte # (Auto) 0.9 (0.1-1.2) X10*3/uL Eos # (Auto) 0.4 (0.0-0.4) X10*3/uL Baso # (Auto) 0.1 (0.0-0.2) X10*3/uL Abs Immat Gran (auto) 0.06 H (0.00-0.03) X10*3/uL Absolute Neuts (auto) 11.0 H (2.0-8.3) x10*3/uL Absolute Nucleated RBC 0.000 (0.0-0.012) X10*3/uL Nucleated RBC % (auto) 0.0 (0.0-0.2) /100WBC Sodium 141 (135-145) mmol/L Potassium 3.8 (3.3-5.1) mmol/L Chloride 106 (96-108) mmol/L Carbon Dioxide 25 (22-29) mmol/L Anion Gap 14 (12-20) BUN 10 (9-16) mg/dL Creatinine 0.61 (0.5-1.4) mg/dL Estim Creat Clear Calc 121.9 Estimated GFR > 60 Random Glucose 87 (60-115) mg/dL Calcium 9.5 (8.4-10.2) mg/dL Total Bilirubin 0.3 (0.0-1.0) mg/dL Direct Bilirubin 0.1 (0.0-0.5) mg/dL AST 29 (5-31) U/L ALT 13 (0-31) U/L Alkaline Phosphatase 102 (39-117) U/L Total Protein 6.9 (6.5-8.0) g/dL Albumin 4.1 (3.5-5.0) g/dL Lipase 61 (8-78) U/L Urine Color Yellow Urine Appearance Clear Urine pH 6.5 (5.0-9.0) Ur Specific Martha >= 1.030 H (1.005-1.025) Urine Protein Negative (Neg-Trace) mg/dL Urine Glucose (UA) Negative (Negative) mg/dL Urine Ketones Negative (Negative) mg/dL Urine Blood Negative (Negative) Urine Nitrite Negative (Negative) Ur Leukocyte Esterase Trace H (Negative) Urine RBC 0-2 (0-2) /HPF Urine WBC 6-10 H (0-5) /HPF Ur Squamous Epith Cells 0-2 (0-2) /HPF Urine Bacteria Trace (None Seen) Hyaline Casts 0-2 (0-2) /LPF Radiology Impression Discussion of test interpretation with radiology: I have reviewed the radiologist's reading. Radiologist Impression: EXAMINATION: CT ABDOMEN AND PELVIS WITH CONTRAST CLINICAL INFORMATION: pain COMPARISON: 09/27/2022? TECHNIQUE: Multidetector volumetric imaging was performed from the superior aspect of the liver through the pubic symphysis following administration of 100 mL Omnipaque 300 intravenous contrast. Sagittal and coronal reformatted images were obtained on the technologist workstation.. This CT examination was performed using dose optimization techniques as appropriate, variously including the following: *Automated exposure control *Adjustment of mA and/or kV according to patient size (this includes techniques or standardized protocols for targeted exams where dose is matched to indication/reason for exam; i.e. extremities or head) *Use of iterative reconstruction technique DLP: 633 mGy-cm FINDINGS: LUNG BASES: The visualized lung bases are unremarkable.? LIVER, GALLBLADDER, AND BILIARY TREE: There is diffuse fatty infiltration of the liver but no focal hepatic lesion nor biliary ductal dilatation. The gallbladder surgically absent.? PANCREAS: There is mild fullness in the region the pancreatic body. This could be technique related although early interstitial pancreatitis cannot be entirely excluded and should be clinically correlated. No peripancreatic fluid collection and no pancreatic ductal dilatation. SPLEEN: Unremarkable.? ADRENAL GLANDS: Unremarkable.? KIDNEYS AND URETERS: The kidneys are normal in size, shape, and attenuation. No hydronephrosis, hydroureter, or calculi seen. No perinephric stranding. ? BLADDER: Unremarkable.? GASTROINTESTINAL TRACT: Scattered colonic diverticulosis. No colonic wall thickening or pericolonic inflammatory change to suggest diverticulitis. Normal-appearing appendix in the right lower quadrant. No obstructive changes to the small bowel. Patient is status post Fiorella-en-Y gastric bypass.? ABDOMINAL WALL: Postoperative regions of scarring. No obvious herniation? LYMPHOVASCULAR STRUCTURES: No lymphadenopathy. The aorta is unremarkable.? PELVIC VISCERA: Physiologic changes. OSSEOUS STRUCTURES: Unremarkable.? CT/CT abdomen pelvis w IV con IMPRESSION: Chronic appearing and postoperative changes as described. I do not appreciate any acute intra-abdominal process. There is mild fullness to the pancreatic body which could be technique related although early interstitial pancreatitis cannot be excluded and should be clinically correlated. Amylase and lipase levels may be helpful. ? Dictated By: Sunny España MD External Record Review External record reviewed: Inpatient record, Office record, Outpatient record, Prior outpatient labs, Prior outpatient radiology, Primary care record and Outside ED record Review of other emergency department visits with similar presentation patient has had multiple abdominal CT with IV, however given significant pain and patient reporting pain is more severe will repeat CT abdomen/pelvis Prescription Management I considered prescription management with: Pain Medication Discharge Plan Discharge Clinical Impression: Abdominal pain Patient Disposition: Home, Self-Care Instructions: Abdominal Pain (ED) Additional Instructions: Please drink plenty of fluids get plenty of rest. Your CT scan showed no acute abnormalities. It is unclear what is causing you to have these symptoms, so it is critical that you follow-up with your GI specialist and your bariatric surgeon. We are are sending your urine out for further testing, we will call you with any abnormal results. Please take prescribed oxycodone as directed, only use this for severe pain. If any new or worsening symptoms occur please return for re-evaluation. Prescriptions: New oxycodone 5 mg tablet 5 mg PO BID PRN (Reason: pain) Qty: 8 0RF Rx Instructions: Partial Fill upon patient request. No Action levofloxacin 750 mg tablet 750 mg PO DAILY 6 Days Qty: 6 0RF metronidazole [Flagyl] 500 mg tablet 500 mg PO Q8H 7 Days Qty: 21 0RF oxycodone 5 mg tablet 5 mg PO Q8H PRN (Reason: pain) Qty: 7 0RF Rx Instructions: Patient has tolerated oxycodone in the emergency department. amoxicillin-pot clavulanate 875-125 mg tablet 1 tab PO BID 10 Days Qty: 20 0RF fluconazole [Diflucan] 150 mg tablet 150 mg PO Q3D Qty: 2 0RF prednisone 20 mg tablet 40 mg PO DAILY 5 Days Qty: 10 0RF albuterol sulfate 90 mcg/actuation HFA aerosol inhaler 2 puff inhalation Q4-6H PRN (Reason: shortness of breath or wheezing) Qty: 6.7 0RF oxycodone 5 mg tablet 5 mg PO Q6H PRN (Reason: pain) Qty: 10 0RF Rx Instructions: Partial Fill upon patient request. acetaminophen 500 mg tablet 1,000 mg PO TID PRN (Reason: pain) Qty: 30 0RF ondansetron 4 mg tablet,disintegrating 4 mg PO Q8H PRN (Reason: nausea and vomiting) Qty: 15 0RF Stand Alone Forms: Work/School Release
[2022-11-19 15:58] LABS: MANUAL DIFF FLAG NO
[2022-11-19] MEDS: ondansetron HCL 4 MG/2 ML VIAL IVPUSH (15:58)
[2022-11-19] MEDS: HYDROmorphone HCl 0.5 MG/0.5 ML SYRINGE IVPUSH (15:58)
[2022-11-19] MEDS: 0.9 % Sodium Chloride 1,000 ML 999 ML IV ×2 (15:58→17:29)
[2022-11-19 15:59] LABS: Basophils Absolute Auto 0.1 X10*3/uL (0.0-0.2); Basophils Percent Auto 0.9 % (0-2); Eosinophils Absolute Auto 0.4 X10*3/uL (0.0-0.4); Eosinophils Percent Auto 2.7 % (0-4); Hemoglobin 10.5 g/dl (12.0-16.0); Imm Gran Abs Auto 0.06 X10*3/uL (0.00-0.03); Imm Gran Pct Auto 0.4 % (0.0-0.4); Lymphocytes Absolute Auto 3.4 X10*3/uL (1.2-4.9); Lymphocytes Percent Auto 21.6 % (20-40); Mean Corpuscular HGB Conc 30.9 g/dl (31.0-35.0); Mean Corpuscular Hemoglobin 24.4 pg (27.0-33.0); Mean Corpuscular Volume 79.1 fL (80.0-98.0); Mean Platelet Volume 10.4 fL (9.4-12.3); Monocytes Absolute Auto 0.9 X10*3/uL (0.1-1.2); Monocytes Percent Auto 5.4 % (2-11); Platelet Count 473 X10*3/uL (160-400); Red Cell Distribution Width 17.5 % (11.0-16.0); White Blood Count 15.9 X10*3/uL (4.8-10.8)
--- NOTE | 2022-11-19 16:11 | PC.NURSE ---
pt medicated per MAR, 20G IV placed in right lateral AC- 1L NS infusing per order
[2022-11-19 16:30] LABS: Alanine Aminotransferase 13 U/L (0-31); Albumin Level 4.1 g/dL (3.5-5.0); Alkaline Phosphatase 102 U/L (39-117); Anion Gap 14 (12-20); Aspartate Amino Transferase 29 U/L (5-31); Bilirubin Direct 0.1 mg/dL (0.0-0.5); Bilirubin Total 0.3 mg/dL (0.0-1.0); Blood Urea Nitrogen 10 mg/dL (9-16); Calcium 9.5 mg/dL (8.4-10.2); Carbon Dioxide 25 mmol/L (22-29); Chloride 106 mmol/L (96-108); Creatinine Clr Calc Pharmacy 121.9; Estimated Glomerular Filt Rate > 60; Glucose Random 87 mg/dL (60-115); Potassium 3.8 mmol/L (3.3-5.1); Sodium 141 mmol/L (135-145); Total Protein 6.9 g/dL (6.5-8.0)
[2022-11-19 16:50] LABS: Lipase 61 U/L (8-78)
[2022-11-19] MEDS: iohexoL 350 MG/ML 100 ML INFUS..BTL IV (17:21)
[2022-11-19] MEDS: HYDROmorphone HCl 0.5 MG/0.5 ML SYRINGE 0.25 MG IVPUSH (17:27)
[2022-11-19] MEDS: Prochlorperazine Edisylate 10 MG/2 ML VIAL IVPUSH (17:28)
[2022-11-19 17:34] VITALS: BP 113/67; PULSE 94; RESP 18; O2SAT 100
[2022-11-19 19:25] LABS: Appearance Urine Clear; Color Urine Yellow; Glucose Urine UA Negative (Negative); Leukocyte Esterase Urine Trace (Negative); Nitrite Urine Negative (Negative); PH 6.5 (5.0-9.0); Specific Gravity - Urine >= 1.030 (1.005-1.025); UMIC TRIGGER UACC YES; Urine Blood Negative (Negative); Urine Ketones Negative (Negative); Urine Protein Negative (Neg-Trace)
[2022-11-19 19:30] LABS: Bacteria Urine Trace (None Seen); Hyaline Casts Urine 0-2 /LPF (0-2); RBC Urine 0-2 /HPF (0-2); Squamous Epithelial Cell Urine 0-2 /HPF (0-2); UACC Culture Trigger YES
== END 2022-11-19 19:54 | disposition home or self-care (01) ==
PROVIDERS: Physician Assistant Medical; Emergency Provider Emergency Medicine; PCP Internal Medicine
DX: R10.33 Periumbilical pain (principal); Z98.84 Bariatric surgery status; Z79.899 Other long term (current) drug therapy
CPT/HCPCS: 36415; 74177; 80048; 80076; 81001; 83690; 85025; 87086; 96361; 96374; 96375; 96376; 99284; J1170; J2405; Q9967

== ENCOUNTER 2023-02-18 04:54 | Emergency (ER) | payer OTHER, SELFPAY ==
--- NOTE | ~2023-02-18 | CT_ITS ---
EXAMINATION: CT ABDOMEN AND PELVIS WITH CONTRAST CLINICAL INFORMATION: Left lower quadrant pain COMPARISON: 11/19/2022 TECHNIQUE: Multidetector volumetric images were obtained from the superior aspect of the liver through the pubic symphysis following administration 85 mL of Omnipaque 350 intravenous contrast. Sagittal and coronal reformatted images were obtained on the technologist's workstation. Oral contrast: No This CT examination was performed using dose optimization techniques as appropriate, variously including the following: *Automated exposure control *Adjustment of mA and/or kV according to patient size (this includes techniques or standardized protocols for targeted exams where dose is matched to indication/reason for exam; i.e. extremities or head) *Use of iterative reconstruction technique DLP: 524 mGy-cm FINDINGS: LUNG BASES: The visualized lung bases are unremarkable. LIVER, GALLBLADDER, AND BILIARY TREE: The liver is normal in size, shape, and attenuation. No focal hepatic lesion or biliary ductal dilatation is present. Patient is status post cholecystectomy. PANCREAS: Unremarkable. SPLEEN: Unremarkable. ADRENAL GLANDS: Unremarkable. KIDNEYS AND URETERS: Bilateral nephrograms are symmetric. No hydronephrosis or obstructing calculus identified. BLADDER: Mildly distended and grossly unremarkable. GASTROINTESTINAL TRACT: Postsurgical changes along the stomach and proximal small bowel. No evidence of bowel obstruction. Limited assessment for wall thickening in much of the colon due to luminal collapse. However, there is some mural prominence of the collapsed segments of colon including the descending/sigmoid colon and transverse colon, for which mild colitis cannot be excluded. The appendix is unremarkable. No free fluid or free air is seen. ABDOMINAL WALL: No significant hernia is appreciated. LYMPH NODES: Normal. VASCULAR: Unremarkable. PELVIC VISCERA: Unremarkable. OSSEOUS STRUCTURES: Unremarkable. CT/CT abdomen pelvis w IV con IMPRESSION: Mural prominence of collapsed segments of colon, for which mild colitis cannot be excluded in the proper clinical setting. No additional acute findings identified.
[2023-02-18 05:01] VITALS: BP 127/52; PULSE 75; RESP 18; TEMP 36.6; O2SAT 100; BMI 33.4
[2023-02-18 05:26] LABS: MANUAL DIFF FLAG NO
[2023-02-18 05:27] LABS: Basophils Absolute Auto 0.1 X10*3/uL (0.0-0.2); Basophils Percent Auto 0.9 % (0-2); Eosinophils Absolute Auto 0.3 X10*3/uL (0.0-0.4); Eosinophils Percent Auto 3.4 % (0-4); Hematocrit 33.6 % (37.0-47.0); Hemoglobin 10.4 g/dl (12.0-16.0); Imm Gran Abs Auto 0.03 X10*3/uL (0.00-0.03); Imm Gran Pct Auto 0.4 % (0.0-0.4); Lymphocytes Percent Auto 22.8 % (20-40); Mean Corpuscular Hemoglobin 23.4 pg (27.0-33.0); Mean Corpuscular Volume 75.7 fL (80.0-98.0); Mean Platelet Volume 10.3 fL (9.4-12.3); Monocytes Absolute Auto 0.5 X10*3/uL (0.1-1.2); Monocytes Percent Auto 6.3 % (2-11); Neutrophils Absolute Auto 5.7 x10*3/uL (2.0-8.3); Neutrophils Percent Auto 66.2 % (45-73); Platelet Count 364 X10*3/uL (160-400); Red Blood Count 4.44 X10*6/uL (4.20-5.50); Red Cell Distribution Width 18.3 % (11.0-16.0); White Blood Count 8.6 X10*3/uL (4.8-10.8)
[2023-02-18] MEDS: ondansetron HCL 4 MG/2 ML VIAL IVPUSH (05:35)
[2023-02-18] MEDS: HYDROmorphone HCl 0.5 MG/0.5 ML SYRINGE IVPUSH (05:35)
[2023-02-18] MEDS: 0.9 % Sodium Chloride 1,000 ML 999 ML IV (05:41)
[2023-02-18 05:46] LABS: Alanine Aminotransferase 7 U/L (0-31); Albumin Level 3.9 g/dL (3.5-5.0); Alkaline Phosphatase 101 U/L (39-117); Anion Gap 12 (12-20); Aspartate Amino Transferase 18 U/L (5-31); Bilirubin Direct < 0.2 mg/dL (0.0-0.5); Bilirubin Total 0.2 mg/dL (0.0-1.0); Blood Urea Nitrogen 8 mg/dL (9-16); Calcium 9.1 mg/dL (8.4-10.2); Carbon Dioxide 23 mmol/L (22-29); Chloride 109 mmol/L (96-108); Creatinine Clr Calc Pharmacy 113.2; Estimated Glomerular Filt Rate > 60; Glucose Random 91 mg/dL (60-115); Lipase 12 U/L (8-78); Potassium 3.4 mmol/L (3.3-5.1); Sodium 141 mmol/L (135-145); Total Protein 6.7 g/dL (6.5-8.0)
[2023-02-18 05:48] LABS: HCG Quantitative < 2 mIU/mL
--- NOTE | 2023-02-18 05:58 | ED.ABDPAIN ---
HPI - Abdominal Pain General Chief Complaint: Abdominal Pain Stated Complaint: Abdominal Pain Time Seen by Provider: 02/18/23 05:19 Source: patient and old records reviewed Mode of arrival: ambulatory Limitations: no limitations History of Present Illness HPI narrative: 37 yo female with hx of gastric bypass at [facility] a year ago, constipation at times, GI issues has had 2 colonoscopies in the past, here with c/o paste like stools with lower abdominal pain and nausea x 3 days. No urinary symptoms, no fevers, took some bentyl without relief. Has dx of diverticulosis but no infections in the past. No recent antibiotic use. MD elicited complaint: abdominal pain Pertinent past history: other (gastric bypass and diverticulosis) Onset (ago): day(s) (3) Pain Consistency: intermittent Location: RLQ and LLQ Severity: moderate Quality: cramping Radiation: none Migration to: no migration Exacerbating factors: movement Relieving factors: nothing Associated symptoms: nausea and constipation Related Data Previous Rx's Medication Instructions Recorded levofloxacin 750 mg tablet 750 mg PO DAILY 6 days #6 tabs 09/13/20 metronidazole 500 mg tablet 500 mg PO Q8H 7 days #21 tabs 09/13/20 (Flagyl) oxycodone 5 mg tablet 5 mg PO Q8H PRN pain #7 tabs 09/13/20 amoxicillin 875 mg-potassium 1 tab PO BID 10 days #20 tabs 11/01/21 clavulanate 125 mg tablet fluconazole 150 mg tablet 150 mg PO Q3D 2 doses #2 tabs 11/01/21 (Diflucan) albuterol sulfate 90 mcg/actuation 2 puff inhalation Q4-6H PRN 01/16/22 aerosol inhaler shortness of breath or wheezing #6.7 grams prednisone 20 mg tablet 40 mg (2 x 20 mg) PO DAILY 5 days 01/16/22 #10 tabs acetaminophen 500 mg tablet 1,000 mg (2 x 500 mg) PO TID PRN 06/13/22 pain #30 tabs oxycodone 5 mg tablet 5 mg PO Q6H PRN pain #10 tabs 06/13/22 ondansetron 4 mg disintegrating 4 mg PO Q8H PRN nausea and 09/27/22 tablet vomiting #15 tabs oxycodone 5 mg tablet 5 mg PO BID PRN pain #8 tabs 11/19/22 hydrocodone 5 mg-acetaminophen 325 1 tab PO Q6H PRN pain #10 tabs 02/18/23 mg tablet ondansetron 4 mg disintegrating 4 mg PO Q8H PRN nausea and 02/18/23 tablet vomiting #20 tabs Allergies Allergy/AdvReac Type Severity Reaction Status Date / Time morphine [MORPHINE] Allergy Unknown SHORTNESS Verified 02/18/23 05:13 OF BREATH NSAIDS (Non-Steroidal Allergy Unknown Abdominal Verified 02/18/23 05:13 Anti-Inflamma Pain [NSAIDS] Sulfa (Sulfonamide Allergy Unknown HIVES Verified 02/18/23 05:13 Antibiotics) [SULFA (SULFONAMIDE ANTIBIOTICS)] tree nut [TREE NUT] Allergy Unknown HIVES Verified 02/18/23 05:13 Review of Systems Review of Systems Constitutional : No Weight loss, No Fever, No Chills ENT/Mouth : No sore throat, No Rhinorrhea Eyes: No Swelling, No Redness Cardiovascular : No Chest Pain, No SOB, NoEdema Respiratory : No Cough, No Sputum, No Wheezing Gastrointestinal : Positive Nausea, no Vomiting, no Diarrhea, positive abdominal Pain, No Hematochezia, No Melena Genitourinary : No Dysuria, No Urinary Frequency, No Hematuria, No Urgency Musculoskeletal : No joint pain, No Myalgias, No Joint Swelling Skin : No Skin Lesions, No rash Neuro : No Weakness, No Numbness, No Dizziness, No Headache Psych : No Anxiety/Panic, No Depression Heme/Lymph: No Bruising, No Lymphadenopathy Endocrine : No Polyuria, No Polydipsia All other systems reviewed and are negative. [facility] Past Medical History Attestation statement: The following information was validated with the patient. Source: old records reviewed Medical History Migraines PCOS (polycystic ovarian syndrome) Anxiety Ovarian cyst Surgical History Gastric bypass status for obesity Social History Social History Alcohol intake: current Alcohol intake frequency: holidays/special occasions only Smoked in Last 30 Days: No Use of substances other than those prescribed or required for medical reasons: No Advance Directives: No Advance Directives Information Provided: Yes Patient : No Physical Exam ED Vital Signs: Vital Signs - 24 hr 02/18/23 05:01 02/18/23 06:31 Temperature 97.8 F 97.9 F Pulse Rate 75 89 Respiratory Rate 18 16 Blood Pressure 127/52 L 108/63 Pulse Oximetry 100 100 Oxygen Delivery Method Room Air Room Air BMI result Body Mass Index 33.4 Appearance: Alert. Oriented X3. No acute distress. Eyes: Pupils equal, round and reactive to light. ENT: Pharynx normal. Neck: Normal inspection. Neck supple. CVS: Normal heart rate and rhythm. Pulses normal. Respiratory: No respiratory distress. Breath sounds normal. Abdomen: Soft and mild lower abdominal ttp but no rebound or guarding, no distention Skin: Skin warm and dry. Normal skin color. Normal skin turgor. Extremities: No lower extremity edema. No calf ttp Neuro: Oriented X 3. No motor deficit. No sensory deficit. Medical Decision Making Medical Decision Making MDM Narrative: 37 yo female with hx of gastric bypass at [facility] a year ago, constipation at times, GI issues here with c/o lower abdominal pain and constipation no fevers. no travel/abx use has hx of diverticulosis no prior obstructions. At this time will need labs, CT scan given bariatric status. She states this is not typical of her cyst pain. Differential Diagnosis Differential Diagnoses: The differential diagnosis associated with the presentation includes diverticulitis, cyst, constipation Admission/Observation Consideration of admission/observation: Escalation of care including admission/observation considered pain well controlled tolerating PO stable for DC Lab Data [facility] Lab Attestation statement: I reviewed the patient's lab results. will hold off treating UA until culture 02/18/23 05:19 02/18/23 05:19 Labs: Lab Results 02/18/23 02/18/23 Range/Units 05:19 06:57 WBC 8.6 (4.8-10.8) X10*3/uL RBC 4.44 (4.20-5.50) X10*6/uL Hgb 10.4 L (12.0-16.0) g/dl Hct 33.6 L (37.0-47.0) % MCV 75.7 L (80.0-98.0) fL MCH 23.4 L (27.0-33.0) pg MCHC 31.0 (31.0-35.0) g/dl RDW 18.3 H (11.0-16.0) % Plt Count 364 (160-400) X10*3/uL MPV 10.3 (9.4-12.3) fL Immature Gran % (Auto) 0.4 (0.0-0.4) % Neut % (Auto) 66.2 (45-73) % Lymph % (Auto) 22.8 (20-40) % [place] % (Auto) 6.3 (2-11) % Eos % (Auto) 3.4 (0-4) % Baso % (Auto) 0.9 (0-2) % Lymph # (Auto) 2.0 (1.2-4.9) X10*3/uL [place] # (Auto) 0.5 (0.1-1.2) X10*3/uL Eos # (Auto) 0.3 (0.0-0.4) X10*3/uL Baso # (Auto) 0.1 (0.0-0.2) X10*3/uL Abs Immat Gran (auto) 0.03 (0.00-0.03) X10*3/uL Absolute Neuts (auto) 5.7 (2.0-8.3) x10*3/uL Absolute Nucleated RBC 0.000 (0.0-0.012) X10*3/uL Nucleated RBC % (auto) 0.0 (0.0-0.2) /100WBC Sodium 141 (135-145) mmol/L Potassium 3.4 (3.3-5.1) mmol/L Chloride 109 H (96-108) mmol/L Carbon Dioxide 23 (22-29) mmol/L Anion Gap 12 (12-20) BUN 8 L (9-16) mg/dL Creatinine 0.64 (0.5-1.4) mg/dL Estim Creat Clear Calc 113.2 Estimated GFR > 60 Random Glucose 91 (60-115) mg/dL Calcium 9.1 (8.4-10.2) mg/dL Total Bilirubin 0.2 (0.0-1.0) mg/dL Direct Bilirubin < 0.2 (0.0-0.5) mg/dL AST 18 (5-31) U/L ALT 7 (0-31) U/L Alkaline Phosphatase 101 (39-117) U/L Total Protein 6.7 (6.5-8.0) g/dL Albumin 3.9 (3.5-5.0) g/dL Lipase 12 (8-78) U/L Beta HCG, Quant < 2 mIU/mL Urine Color Yellow Urine Appearance Clear Urine pH 6.5 (5.0-9.0) Ur Specific [place] >= 1.030 H (1.005-1.025) Urine Protein Negative (Neg-Trace) mg/dL Urine Glucose (UA) Negative (Negative) mg/dL Urine Ketones Trace (Negative) mg/dL Urine Blood Negative (Negative) Urine Nitrite Negative (Negative) Ur Leukocyte Esterase Small (1+) H (Negative) Urine RBC 0-2 (0-2) /HPF Urine WBC 11-20 H (0-5) /HPF Ur Squamous Epith Cells 0-2 (0-2) /HPF Urine Bacteria Trace (None Seen) Hyaline Casts 0-2 (0-2) /LPF Independent Interpretation I performed an independent interpretation of an: CT Scan (possible mild colitis) Radiology Impression Discussion of test interpretation with radiology: I have reviewed the radiologist's reading. Radiologist Impression: possible mild colitis but in patient with normal WBC count, afebrile and immunocompetent I would not start on oral abx should be self limiting External Record Review External record reviewed: Inpatient record Prescription Management I considered prescription management with: Pain Medication and Other Medications Administered Discontinued Medications Generic Name Dose Route Start Last Admin Trade Name Freq PRN Reason Stop Dose Admin Hydromorphone HCl 0.5 mg 02/18/23 05:19 02/18/23 05:35 Hydromorphone Hcl 0.5 Mg/0.5 Ml Syringe IVPUSH 02/18/23 05:20 0.5 mg ONCE ONE Administration Protocol Sodium Chloride 1,000 mls @ 999 mls/hr 02/18/23 05:30 02/18/23 05:41 Ns IV 02/18/23 06:30 999 mls/hr .Q1H1M LUISA Administration Ondansetron HCl 4 mg 02/18/23 05:19 02/18/23 05:35 Ondansetron Hcl 4 Mg/2 Ml Vial IVPUSH 02/18/23 05:20 4 mg ONCE ONE Administration Discharge Plan Discharge Clinical Impression: Colitis Abdominal pain Qualifiers: Abdominal location: lower abdomen, unspecified Qualified Code(s): R10.30 - Lower abdominal pain, unspecified Patient Disposition: Home, Self-Care Instructions: Abdominal Pain (ED), Colitis (ED) Additional Instructions: return for fevers, vomiting, bloody stools worsening pain. start the BRAT diet and take a probiotic. talk to your GI doctor. CT scan shows mild colitis of sigmoid colon but very minimal. Prescriptions: New hydrocodone-acetaminophen 5-325 mg tablet 1 tab PO Q6H PRN (Reason: pain) Qty: 10 0RF Rx Instructions: partial fill okay; Partial Fill upon patient request. ondansetron 4 mg tablet,disintegrating 4 mg PO Q8H PRN (Reason: nausea and vomiting) Qty: 20 0RF No Action levofloxacin 750 mg tablet 750 mg PO DAILY 6 Days Qty: 6 0RF metronidazole [Flagyl] 500 mg tablet 500 mg PO Q8H 7 Days Qty: 21 0RF oxycodone 5 mg tablet 5 mg PO Q8H PRN (Reason: pain) Qty: 7 0RF Rx Instructions: Patient has tolerated oxycodone in the emergency department. amoxicillin-pot clavulanate 875-125 mg tablet 1 tab PO BID 10 Days Qty: 20 0RF fluconazole [Diflucan] 150 mg tablet 150 mg PO Q3D Qty: 2 0RF prednisone 20 mg tablet 40 mg PO DAILY 5 Days Qty: 10 0RF albuterol sulfate 90 mcg/actuation HFA aerosol inhaler 2 puff inhalation Q4-6H PRN (Reason: shortness of breath or wheezing) Qty: 6.7 0RF oxycodone 5 mg tablet 5 mg PO Q6H PRN (Reason: pain) Qty: 10 0RF Rx Instructions: Partial Fill upon patient request. acetaminophen 500 mg tablet 1,000 mg PO TID PRN (Reason: pain) Qty: 30 0RF ondansetron 4 mg tablet,disintegrating 4 mg PO Q8H PRN (Reason: nausea and vomiting) Qty: 15 0RF oxycodone 5 mg tablet 5 mg PO BID PRN (Reason: pain) Qty: 8 0RF Rx Instructions: Partial Fill upon patient request. Stand Alone Forms: Work/School Release
[2023-02-18 06:31] VITALS: BP 108/63; PULSE 89; RESP 16; TEMP 36.6; O2SAT 100
[2023-02-18 07:10] LABS: Appearance Urine Clear; Color Urine Yellow; Glucose Urine UA Negative (Negative); Leukocyte Esterase Urine Small (1+) (Negative); Nitrite Urine Negative (Negative); PH 6.5 (5.0-9.0); Specific Gravity - Urine >= 1.030 (1.005-1.025); UMIC TRIGGER UACC YES; Urine Blood Negative (Negative); Urine Ketones Trace mg/dL (Negative); Urine Protein Negative (Neg-Trace)
[2023-02-18 07:18] LABS: Bacteria Urine Trace (None Seen); Hyaline Casts Urine 0-2 /LPF (0-2); RBC Urine 0-2 /HPF (0-2); Squamous Epithelial Cell Urine 0-2 /HPF (0-2); UACC Culture Trigger YES
== END 2023-02-18 08:05 | disposition home or self-care (01) ==
PROVIDERS: Emergency Provider Emergency Medicine; PCP Internal Medicine
DX: K52.9 Noninfective gastroenteritis and colitis, unspecified (principal); R10.30 Lower abdominal pain, unspecified; Z79.899 Other long term (current) drug therapy
CPT/HCPCS: 36415; 74177; 80048; 80076; 81001; 81003; 83690; 84702; 85025; 87086; 96361; 96374; 96375; 99284; J1170; J2405

== ENCOUNTER → 2023-08-29 12:30 | Outpatient (BNV) | payer OTHER, SELFPAY | PROVIDERS: PCP Internal Medicine; Referring Provider Internal Medicine; Visit Provider Internal Medicine Medical Oncology | DX: D64.9 Anemia, unspecified (principal) | CPT/HCPCS: 99204; 99213 ==

== ENCOUNTER 2023-11-14 08:30 | Outpatient (RCR) | payer OTHER, SELFPAY ==
[2023-09-16 09:50] VITALS: BP 123/71; PULSE 105; RESP 20; TEMP 36.8; O2SAT 99
[2023-09-16] MEDS: Iron Sucrose Complex 200 MG in 0.9 % Sodium Chloride 100 ML 440 MG IV (10:01)
[2023-09-16] MEDS: 0.9 % Sodium Chloride Flush 10 ML SYRINGE 5 ML IVFLUSH (10:01)
[2023-09-23 08:05] VITALS: BP 120/71; PULSE 105; RESP 20; TEMP 37; O2SAT 100
[2023-09-23] MEDS: Iron Sucrose Complex 200 MG in 0.9 % Sodium Chloride 100 ML 440 MG IV (08:11)
[2023-09-23] MEDS: 0.9 % Sodium Chloride Flush 10 ML SYRINGE 5 ML IVFLUSH (08:12)
[2023-10-02 07:30] VITALS: BP 121/46; PULSE 78; RESP 20; TEMP 36.6; O2SAT 98
[2023-10-02] MEDS: Iron Sucrose Complex 200 MG in 0.9 % Sodium Chloride 100 ML 440 MG IV (07:39)
[2023-10-02] MEDS: 0.9 % Sodium Chloride Flush 10 ML SYRINGE 5 ML IVFLUSH (07:39)
[2023-10-10 08:10] VITALS: BP 101/56; PULSE 92; RESP 20; TEMP 36.6; O2SAT 100
[2023-10-10] MEDS: Iron Sucrose Complex 200 MG in 0.9 % Sodium Chloride 100 ML 440 MG IV (08:15)
[2023-10-10 08:53] LABS: MANUAL DIFF FLAG NO
[2023-10-10 08:55] LABS: Basophils Absolute Auto 0.1 X10*3/uL (0.0-0.2); Basophils Percent Auto 1.6 % (0-2); Eosinophils Absolute Auto 0.4 X10*3/uL (0.0-0.4); Eosinophils Percent Auto 7.4 % (0-4); Hematocrit 36.3 % (37.0-47.0); Hemoglobin 11.2 g/dl (12.0-16.0); Imm Gran Abs Auto 0.01 X10*3/uL (0.00-0.03); Imm Gran Pct Auto 0.2 % (0.0-0.4); Lymphocytes Absolute Auto 2.2 X10*3/uL (1.2-4.9); Lymphocytes Percent Auto 42.5 % (20-40); Mean Corpuscular HGB Conc 30.9 g/dl (31.0-35.0); Mean Corpuscular Hemoglobin 24.9 pg (27.0-33.0); Mean Corpuscular Volume 80.8 fL (80.0-98.0); Mean Platelet Volume 10.2 fL (9.4-12.3); Monocytes Absolute Auto 0.4 X10*3/uL (0.1-1.2); Monocytes Percent Auto 6.8 % (2-11); Neutrophils Absolute Auto 2.1 x10*3/uL (2.0-8.3); Neutrophils Percent Auto 41.5 % (45-73); Platelet Count 268 X10*3/uL (160-400); Red Blood Count 4.49 X10*6/uL (4.20-5.50); Red Cell Distribution Width 26.2 % (11.0-16.0); White Blood Count 5.1 X10*3/uL (4.8-10.8)
[2023-10-10 09:40] LABS: Ferritin 68 ng/mL (10-250)
[2023-10-17] MEDS: Iron Sucrose Complex 200 MG in 0.9 % Sodium Chloride 100 ML 440 MG IV (08:22)
[2023-10-17 08:23] VITALS: BP 101/65; PULSE 97; RESP 16; TEMP 36.6; O2SAT 99
[2023-10-31 10:22] VITALS: BP 109/72; PULSE 80; RESP 16; TEMP 36.6; O2SAT 98
[2023-10-31] MEDS: Iron Sucrose Complex 200 MG in 0.9 % Sodium Chloride 100 ML 440 MG IV (10:27)
[2023-11-14 07:33] VITALS: BP 104/67; PULSE 90; RESP 18; TEMP 36.3
[2023-11-14] MEDS: Iron Sucrose Complex 200 MG in 0.9 % Sodium Chloride 100 ML 440 MG IV (07:49)
== END 2023-12-04 14:55 | disposition home or self-care (01) ==
LOC: HO.INF 08:30
PROVIDERS: Visit Provider Internal Medicine Medical Oncology
DX: D50.9 Iron deficiency anemia, unspecified (principal)
CPT/HCPCS: 36415; 82728; 85025; 96365; 96374; J1756

== ENCOUNTER 2023-12-05 07:15 | Outpatient (REF) | payer OTHER, SELFPAY ==
[2023-12-05 07:23] LABS: MANUAL DIFF FLAG NO
[2023-12-05 07:48] LABS: Basophils Absolute Auto 0.1 X10*3/uL (0.0-0.2); Basophils Percent Auto 1.1 % (0-2); Eosinophils Absolute Auto 0.3 X10*3/uL (0.0-0.4); Eosinophils Percent Auto 4.7 % (0-4); Hemoglobin 12.8 g/dl (12.0-16.0); Imm Gran Abs Auto 0.02 X10*3/uL (0.00-0.03); Imm Gran Pct Auto 0.3 % (0.0-0.4); Lymphocytes Absolute Auto 2.2 X10*3/uL (1.2-4.9); Lymphocytes Percent Auto 31.1 % (20-40); Mean Corpuscular Hemoglobin 27.9 pg (27.0-33.0); Mean Corpuscular Volume 87.3 fL (80.0-98.0); Monocytes Absolute Auto 0.5 X10*3/uL (0.1-1.2); Monocytes Percent Auto 6.7 % (2-11); Neutrophils Absolute Auto 4.1 x10*3/uL (2.0-8.3); Neutrophils Percent Auto 56.1 % (45-73); Platelet Count 280 X10*3/uL (160-400); Red Blood Count 4.58 X10*6/uL (4.20-5.50); Red Cell Distribution Width 19.1 % (11.0-16.0); White Blood Count 7.2 X10*3/uL (4.8-10.8)
[2023-12-05 08:03] LABS: Alanine Aminotransferase 13 U/L (0-31); Alkaline Phosphatase 97 U/L (39-117); Anion Gap 10 (12-20); Aspartate Amino Transferase 16 U/L (5-31); Bilirubin Total 0.2 mg/dL (0.0-1.0); Blood Urea Nitrogen 8 mg/dL (9-16); Calcium 9.1 mg/dL (8.4-10.2); Carbon Dioxide 27 mmol/L (22-29); Chloride 110 mmol/L (96-108); Estimated Glomerular Filt Rate > 60; Glucose Random 85 mg/dL (60-115); Potassium 3.9 mmol/L (3.3-5.1); Sodium 143 mmol/L (135-145); Total Protein 6.3 g/dL (6.5-8.0)
[2023-12-05 08:17] LABS: Ferritin 95 ng/mL (10-250)
== END 2023-12-05 07:16 | disposition home or self-care (01) ==
LOC: HO.LAB 07:15
PROVIDERS: PCP Internal Medicine; Visit Provider Internal Medicine Medical Oncology
DX: D50.9 Iron deficiency anemia, unspecified (principal)
CPT/HCPCS: 36415; 80053; 82728; 85025